=== PATIENT | male | born 1940 | race Caucasian/White ===

== ENCOUNTER 2018-02-06 19:23 | Inpatient (IN) | payer MEDICARE ==
[2018-02-06] MEDS ORDERED: Acetaminophen 500 MG TAB ONE (20:05)
[2018-02-06 20:16] LABS: #Basophils 0.1 thou/uL (0.0-0.2); #Eosinphils 0.1 thou/uL (0.0-0.7); #Lymphocytes 1.9 thou/uL (1.20-3.40); #Monocytes 0.9 thou/uL (0.11-0.59); %Basophils 0.4 % (0.0-1.0); %Lymphocytes 15.7 % (21.0-51.0); %Monocytes 7.7 % (0.0-10.0); %Neutrophils 75.3 % (42.0-75.0); Hemoglobin 11.8 g/dL (14.0-18.0); Mean Corpuscular HGB CONC 32.9 g/dL (32.0-36.0); Mean Corpuscular Hemoglobin 29.7 pg (27.0-31.0); Mean Corpuscular Volume 90.1 fL (78.0-98.0); Mean Platelet Volume 7.1 fL (7.4-10.4); Platelet Count 226 thou/uL (130-400); RBC Distribution Width 12.5 % (11.5-14.5); Red Blood Cell (RBC) Count 3.99 mill/uL (4.70-6.10); White Blood Cell (WBC) Count 11.9 thou/uL (4.8-10.8)
[2018-02-06 20:36] LABS: ALT (SGPT) 12 U/L (8-55); AST (SGOT) 14 U/L (5-34); Albumin 4.1 g/dL (3.4-4.8); Alkaline Phosphatase 80 U/L (40-150); Anion Gap 11 mmol/L (10-20); BUN (Urea Nitrogen) 17 mg/dL (8.4-25.7); Bilirubin, Total 0.6 mg/dL (0.2-1.2); Calc. Creatinine Clearance 0 mL/min (70-130); Calcium 9.2 mg/dL (7.8-10.44); Carbon Dioxide 31 mmol/L (23-31); Chloride 97 mmol/L (98-107); Estimated GFR-MDRD Greater than 90; Globulin 4.2 g/dL (2.4-3.5); Glucose 109 mg/dL (83-110); Potassium 4.2 mmol/L (3.5-5.1); Protein, Total 8.3 g/dL (5.8-8.1); Sodium 135 mmol/L (136-145)
[2018-02-06] MEDS ORDERED: Piperacillin/Tazobactam 4.5 GM VIAL ONE (21:03)
--- NOTE | 2018-02-06 21:03 | RAD ---
CHEST ONE VIEW 02/06/18 INDICATION: History of throat cancer with cough and fever. COMPARISON: Prior exam dated 11/24/13. FINDINGS: There are new patchy areas of air space opacity involving the right lower lobe suspicious for pneumon ia. Chronic lung changes are otherwise stable. Heart size is normal. No acute osseous abnormality is evident. IMPRESSION: Patchy opacities within the right lower lobe are suspicious for pneumonia. Recommend radiographic fol lowup to resolution. POS: [facility]
[2018-02-06 22:10] LABS: Bilirubin Negative (Negative); Blood, Urine Negative (Negative); Clarity CLEAR (Clear); Glucose, Urine (Dipstick) Negative (Negative); Leukocyte Negative (Negative); Nitrite Negative (Negative); Protein, Urine (Dipstick) Negative (Neg-Trace); Specific Gravity, Urine 1.014 (1.002-1.036); pH, Urine 8.5 (5.0-9.0)
[2018-02-06] MEDS ORDERED: Ondansetron PF 4 MG/2 ML Vial IVP PRN (23:08)
[2018-02-06] MEDS ORDERED: Ondansetron ODT 4 MG TAB SL PRN (23:08)
[2018-02-06] MEDS ORDERED: Acetaminophen 325 MG TAB PO PRN (23:08)
[2018-02-06] MEDS ORDERED: Dextrose 5 % And 0.9 % NaCl 1,000 ML IV SCH (23:15)
[2018-02-07 00:53] VITALS: BMI 21.2
[2018-02-07] MEDS ORDERED: Piperacillin/Tazobactam 3.375 GM in Sodium Chloride 0.9% 100 ML IVPB SCH (03:00)
[2018-02-07 05:21] LABS: #Eosinphils 0.1 thou/uL (0.0-0.7); #Lymphocytes 1.3 thou/uL (1.20-3.40); #Monocytes 0.9 thou/uL (0.11-0.59); #Neutrophils 6.9 thou/uL (1.40-6.50); %Eosinophils 1.3 % (0.0-10.0); %Lymphocytes 14.2 % (21.0-51.0); %Monocytes 9.4 % (0.0-10.0); %Neutrophils 75.2 % (42.0-75.0); Hemoglobin 9.6 g/dL (14.0-18.0); Mean Corpuscular HGB CONC 32.5 g/dL (32.0-36.0); Mean Corpuscular Hemoglobin 29.6 pg (27.0-31.0); Mean Corpuscular Volume 91.1 fL (78.0-98.0); Mean Platelet Volume 7.3 fL (7.4-10.4); Platelet Count 177 thou/uL (130-400); RBC Distribution Width 12.6 % (11.5-14.5); Red Blood Cell (RBC) Count 3.26 mill/uL (4.70-6.10); White Blood Cell (WBC) Count 9.2 thou/uL (4.8-10.8)
[2018-02-07 05:39] LABS: ALT (SGPT) 10 U/L (8-55); AST (SGOT) 10 U/L (5-34); Albumin 3.1 g/dL (3.4-4.8); Alkaline Phosphatase 60 U/L (40-150); Anion Gap 10 mmol/L (10-20); BUN (Urea Nitrogen) 13 mg/dL (8.4-25.7); Bilirubin, Total 0.7 mg/dL (0.2-1.2); Calc. Creatinine Clearance 77 mL/min (70-130); Calcium 8.6 mg/dL (7.8-10.44); Carbon Dioxide 25 mmol/L (23-31); Chloride 103 mmol/L (98-107); Estimated GFR-MDRD Greater than 90; Globulin 3.2 g/dL (2.4-3.5); Glucose 114 mg/dL (83-110); Potassium 3.9 mmol/L (3.5-5.1); Protein, Total 6.3 g/dL (5.8-8.1); Sodium 134 mmol/L (136-145)
[2018-02-07] MEDS ORDERED: Acetaminophen 325 MG TAB PO PRN (07:27)
--- NOTE | 2018-02-07 07:54 | HP ---
ADMITTING PHYSICIAN: Dr. Juan M Whitmore covering for Dr. Valadez. Dr. Valadez will take over care when he returns. HISTORY OF PRESENT ILLNESS: The patient is a 77-year-old male with previous history of throat cancer . He has undergone radiation therapy at [facility]. His reports yesterday he was at [facility] derson and driving home he developed a fever of 102 associated with some cough, productive sputum. E vidently, a chest x-ray was done at [facility] yesterday which revealed possible pneumonia, althou gh he was there, he was receiving immunosuppressive therapy. He was able to drive home and then repo rted to the emergency room here. He was seen and evaluated here in the emergency room. Chest x-ray here showed a patchy infiltrate in the right lower lobe suspicious for possible pneumonia. The patie nt has been noting a productive cough. He has had evidently multiple admissions principally through [facility] for pneumonia over the last several months, but none here in [facility]. H is notes that he would tend to be admitted and then go home and have further bouts of fever whic h necessitated further admission at [facility]. There has been no nausea, vomiting, diarrhea, no chest pain, no shortness of breath, otherwise reported. It is noted he does receive tube feedings du e to the previous history of throat cancer. Otherwise, no other medical complaints are noted. ALLERGIES: He has no known allergies. CURRENT MEDICATIONS: Carbamazepine 100 mg b.i.d., carvedilol 25 mg daily, lisinopril 20 mg daily. PAST MEDICAL HISTORY: Positive for hypertension as well as trigeminal neuralgia. PAST SURGICAL HISTORY: Positive for tonsillectomy. He has a feeding tube in place. Back surgery. He denies any history of cardiac disease. SOCIAL/PERSONAL HISTORY: He has smoked in the past. He does not smoke at this time. FAMILY HISTORY: Otherwise noncontributory. REVIEW OF SYSTEMS: GASTROINTESTINAL: Positive for some belching. GENITOURINARY: Otherwise, negative. CARDIOVASCULAR: Negative. RESPIRATORY: Positive as above. NEUROLOGICAL: Positive for the above noted trigeminal neuralgia. PHYSICAL EXAMINATION: VITAL SIGNS: His temperature is 98.5, BP 119/56, O2 sats 92% on room air. GENERAL: He is alert, active, he did not appear in any distress. HEENT: Otherwise, unremarkable. NECK: Supple, full range of motion, no masses. LUNGS: Reveal bilateral breath sounds. There are some crackles, rales, rhonchus sounds at the right base. There is not overwhelming sounds of rales otherwise noted, maybe an occasional wheeze. HEART: Regular rate and rhythm without murmurs, gallops or rubs. ABDOMEN: Soft, nontender, bowel sounds are present and active. There is no hepatosplenomegaly noted . The feeding tube was noted to be in place at this time. EXTREMITIES: No clubbing, edema or cyanosis. LABORATORY: Admission white count is 11.9, hemoglobin 11.8, hematocrit 36.0. Sodium 135, potassium 4.2, chloride 97, CO2 31, BUN 17, creatinine 0.82. Urinalysis is otherwise clear. In the emergency room, the patient received 1 gram of vancomycin, 750 mg of Levaquin and Zosyn. IMPRESSION: 1. Probable aspiration pneumonia. The patient is at high degree risk for aspiration with feeding tu be in place as well as previous history of throat cancer. The sputum he is coughing up is fairly ran k looking and purulent. 2. History of throat cancer. PLAN: 1. The patient will be continued on IV antibiotics with vancomycin, Levaquin, and cefepime for pneum onia protocol. 2. I have consulted Dr. Pardo to further elaborate on therapy. 3. I have discussed the findings with the patient's . We will notify the patient that Dr. Raulito thomas is unavailable at this time and that his care will be provided for by me today and then I will be o ut of town later this week. All of the patient's questions were answered.
[2018-02-07] MEDS: carBAMazepine 100 mg Chewable Tablet PO SCH ×2 (08:45→21:29)
[2018-02-07] MEDS: Azithromycin 500 MG in Sodium Chloride 0.9% 250 ML 250 ML IVPB SCH (08:46)
[2018-02-07] MEDS: Carvedilol 25 MG TAB PO SCH ×2 (08:46→21:29)
[2018-02-07] MEDS ORDERED: Cefepime 2 GM in Sodium Chloride 0.9% 100 ML IVPB SCH (09:00)
[2018-02-07] MEDS ORDERED: Vancomycin HCl 1 GM in Sodium Chloride 0.9% 250 ML 300 ML IVPB SCH (09:00)
[2018-02-07] MEDS ORDERED: Loratadine 10 MG TAB PO SCH (09:00)
[2018-02-07] MEDS ORDERED: Lisinopril 20 MG TAB PO SCH (09:00)
--- NOTE | 2018-02-07 09:44 | CON ---
DATE OF CONSULTATION: 02/07/2018 CONSULTING PHYSICIAN: Dr. Juan M Whitmore REASON FOR CONSULTATION: Pneumonia. HISTORY OF PRESENT ILLNESS: Mr. Parker is a 77-year-old male who came to the hospital yesterday with purulent cough and a fever. He is currently receiving immunotherapy through [facility] for continu ed treatment of throat cancer. He was diagnosed with throat cancer some time ago and was treated wit h radiation and chemotherapy and he continues on maintenance immunotherapy. His states that he had a fever before going to [facility] for a checkup yesterday, but by the time he got there, the fever was gone. They noticed some changes on CT scan which seemed consistent with aspiration, but [facility] provider did not want to treat the patient for pneumonia at that time because he looked okay in the clinic. On the way home, he developed a fever and subsequently came to the hospital here for furthe r evaluation. The patient feels better today. He is still coughing up purulent secretions. He hero es any antibiotic use in the last 3 months. He denies any steroid use in the last 1 year. PAST MEDICAL HISTORY: 1. Hypertension. 2. Throat cancer. 3. Trigeminal neuralgia. PAST SURGICAL HISTORY: 1. He has had a PEG tube placement 2. Tonsillectomy. 3. Back surgery. SOCIAL HISTORY: Quit smoking several years ago, quit drinking about a year ago. He is retired. FAMILY MEDICAL HISTORY: Unremarkable. REVIEW OF SYSTEMS: He has some difficulty swallowing. He has to wear a neck guard at night for lymp hedema. He has trigeminal neuralgia symptoms. Otherwise, 12 point review of systems is negative. PHYSICAL EXAMINATION: VITAL SIGNS: Temperature 98.5, pulse 95, respirations 18, O2 sat 93%, blood pressure 126/66. GENERAL: He is awake, alert, sitting in a chair in no distress. HEENT: Pupils react. Sclerae anicteric. Oropharynx clear. NECK: He has some swelling around his throat area which seems to be chronic in nature. CARDIAC: S1, S2 regular without audible murmur. LUNGS: Coarse rhonchi, right base, left side clear. ABDOMEN: Soft, nontender. Feeding tube midline. EXTREMITIES: Severe muscle wasting. No cyanosis or edema. LABORATORY DATA: Urinalysis was clear. White blood cell count 9.2, hematocrit 29.7, platelet count 177. Sodium 134, potassium 3.9, chloride 103, CO2 of 25, BUN 13, creatinine 0.7, glucose 114, calciu m level 8.6. Chest x-ray showed a right lower lobe infiltrate. ASSESSMENT: 1. Aspiration pneumonia. 2. History of throat cancer with chronic swallowing dysfunction. PLAN: I agree with treatment with Zosyn and vancomycin. Cefepime will overlap Zosyn so I will go ah ead and stop that. Use of the azithromycin is equivocal. I would defer on steroid use for the time being unless he gets worse. Continue with breathing treatments as needed. The above encompassed 30 minutes time, of that time, greater than 50% was spent with the patient or o n the patient's unit in the hospital.
[2018-02-07] MEDS: Piperacillin/Tazobactam 3.375 GM in Sodium Chloride 0.9% 100 ML IVPB SCH ×3 (10:10→21:23)
[2018-02-07] MEDS ORDERED: Loratadine 10 MG TAB PO PRN (10:13)
[2018-02-07] MEDS: Vancomycin HCl 1.25 GM in Sodium Chloride 0.9% 250 ML 250 ML IVPB SCH (10:50)
[2018-02-07] MEDS: Lisinopril 10 MG TAB PO SCH (21:29)
[2018-02-08] MEDS: Piperacillin/Tazobactam 3.375 GM in Sodium Chloride 0.9% 100 ML IVPB SCH ×4 (03:05→20:28)
--- NOTE | 2018-02-08 07:45 | PRG ---
DATE OF SERVICE: 02/08/2018 He feels better today. He did relatively well overnight. He has had some loose stools. PHYSICAL EXAMINATION: VITAL SIGNS: Temperature is 98.8 with a T-max of 99.0, pulse 93, respirations 18, O2 sat 96% room ai r, blood pressure 145/71. HEENT: Remarkable for dry oral mucous membranes. NECK: He has a compression dressing in place. LUNGS: Fairly clear without wheezing or rhonchi. CARDIAC: S1 and S2 regular, no murmur. ABDOMEN: Soft, nontender. EXTREMITIES: No edema. He had no labs today. His respiratory culture shows gram negative rods from a Gram stain, moderate i n nature. Identification pending. ASSESSMENT: 1. Possible pneumonia. 2. Chronic aspiration. 3. History of throat cancer with swallowing dysfunction. PLAN: 1. Continue treatment with Zosyn, vancomycin and we can consolidate antibiotics based on culture res ults tomorrow. If this truly gram negative prisca the vancomycin will definitely be discontinued. 2. Since he is having a little loose stools, I will go ahead and send stool for Clostridium diffici le. 3. If he is doing well tomorrow I would assume that he could probably be switched over to oral antib iotics and discharged to home by Sunday.
[2018-02-08] MEDS: Carvedilol 25 MG TAB PO SCH ×2 (08:45→20:21)
[2018-02-08] MEDS: Azithromycin 500 MG in Sodium Chloride 0.9% 250 ML 250 ML IVPB SCH (08:45)
[2018-02-08] MEDS: carBAMazepine 100 mg Chewable Tablet PO SCH ×2 (08:45→20:21)
[2018-02-08] MEDS: Vancomycin HCl 1.25 GM in Sodium Chloride 0.9% 250 ML 250 ML IVPB SCH (12:05)
[2018-02-08] MEDS ORDERED: Insulin Regular 300 UNITS/3 ML VIAL ONE (13:11)
[2018-02-08] MEDS: Lisinopril 10 MG TAB PO SCH (20:21)
[2018-02-09] MEDS: Piperacillin/Tazobactam 3.375 GM in Sodium Chloride 0.9% 100 ML IVPB SCH ×3 (02:38→14:36)
[2018-02-09] MEDS: Carvedilol 25 MG TAB PO SCH ×2 (08:45→21:59)
[2018-02-09] MEDS: carBAMazepine 100 mg Chewable Tablet PO SCH ×3 (08:45→22:07)
[2018-02-09] MEDS: Azithromycin 500 MG in Sodium Chloride 0.9% 250 ML 250 ML IVPB SCH (08:46)
[2018-02-09] MEDS: Vancomycin HCl 1.25 GM in Sodium Chloride 0.9% 250 ML 250 ML IVPB SCH ×2 (08:48→14:46)
[2018-02-09 09:52] LABS: Vancomycin, Trough 6.7 ug/mL
--- NOTE | 2018-02-09 16:37 | PRG ---
DATE OF SERVICE: 02/09/2018 SERVICE: Pulmonary Medicine. INTERVAL HISTORY: Patient is doing outstanding from a respiratory standpoint. His mentation is impr parris. His strength is getting better. Otherwise, there has been no interval change to his condition . PHYSICAL EXAMINATION: VITAL SIGNS: Afebrile, pulse 81, blood pressure 156/69, respirations 18, saturation 97% on room air. GENERAL: Patient is awake, alert, no apparent distress. LUNGS: Decent air entry. There is no prolonged expiratory phase or wheezing present. HEART: Normal rate, regular. ABDOMEN: Soft, nontender, nondistended. Bowel sounds are positive. MUSCULOSKELETAL: No cyanosis or clubbing. There is no pitting in the bilateral lower extremities. NEUROLOGIC: Grossly nonfocal. ASSESSMENT: 1. Pneumonia secondary to gross aspiration. 2. History of throat cancer with oropharyngeal dysphagia. DISCUSSION AND PLAN: It looks like the sensitivities are back. As such, he is growing Klebsiella, p resumptive Pseudomonas and Staph aureus. These things appear to be sensitive to fluoroquinolones. A s such, we will switch him over to monotherapy with p.o. Levaquin. He will need to complete set a 7- 10 day course of these antibiotics. From my perspective, he will be stable for transition out of the hospital in 24-48 hours if his strength continues to improve.
[2018-02-09] MEDS: Lisinopril 10 MG TAB PO SCH (21:59)
[2018-02-09] MEDS ORDERED: Vancomycin HCl 1 GM in Premix Bag 1 BAG IVPB SCH (22:00)
[2018-02-10] MEDS: Carvedilol 25 MG TAB PO SCH ×2 (08:08→21:54)
[2018-02-10] MEDS: carBAMazepine 100 mg Chewable Tablet PO SCH ×2 (08:08→21:55)
--- NOTE | 2018-02-10 18:08 | PRG ---
DATE OF SERVICE: 02/10/2018 SERVICE: Pulmonary Medicine. INTERVAL HISTORY: The patient is doing fine from a respiratory standpoint. He is on room air. He denies any current chest pain, fevers, chills, cough, shortness of breath. He has been able to work with physical therapy. He is doing a little bit of work with Speech Pathology. Otherwise, there has been no interval change to his condition. PHYSICAL EXAMINATION: VITAL SIGNS: Afebrile, pulse 83, blood pressure 177/87, respirations 16, saturation 95% on room air. GENERAL: The patient is awake and alert, in no apparent distress. LUNGS: Excellent air entry. Rhonchi are present. They clear with cough. No prolonged expiratory phase or wheezing is appreciated. HEART: Normal rate, regular. ABDOMEN: Soft, nontender, nondistended. Bowel sounds are positive. MUSCULOSKELETAL: No cyanosis or clubbing. No pitting in the bilateral lower extremities. NEUROLOGIC: Grossly nonfocal. LABORATORY DATA: Sputum is growing Pseudomonas, Staph aureus, Klebsiella. All three of these organisms are sensitive to the fluoroquinolones. ASSESSMENT: 1. Pneumonia secondary to gross aspiration. 2. History of throat cancer with oropharyngeal dysphagia. DISCUSSION AND PLAN: These organisms are all sensitive to fluoroquinolones. As such, he will complete a 7- to 10-day course of Levaquin. Pulmonary Critical Care will continue to follow along, but from my perspective, he is stable for transition out of the hospital. ADRIAN
[2018-02-10] MEDS: Lisinopril 10 MG TAB PO SCH (21:54)
[2018-02-11] MEDS: carBAMazepine 100 mg Chewable Tablet PO SCH (08:29)
[2018-02-11] MEDS: Carvedilol 25 MG TAB PO SCH (08:29)
[2018-02-11 08:54] VITALS: BP 156/75; TEMP 97.7
--- NOTE | 2018-02-11 09:07 | DIS ---
DATE OF ADMISSION: 02/07/2018 DATE OF DISCHARGE: 02/11/2018 DISCHARGE DIAGNOSES: 1. Aspiration pneumonia with Klebsiella and Staphylococcus aureus. 2. Cachexia. 3. Throat cancer, status post radiation therapy. 4. Hypertension. 5. Trigeminal neuralgia. 6. PEG tube in place. DISCHARGE MEDICATIONS: Tegretol 100 b.i.d., carvedilol 25 mg daily, lisinopril 20 daily, vitamins da nelson, Levaquin 500 mg daily #10, Astelin nasal 2 sprays each nostril q.12 hours. Follow up in 10 days, Dr. Jcarlos Valadez. BRIEF HISTORY: This is a 77-year-old white male with a history of throat cancer, status post radiati on therapy at [facility]. He is returning home from [facility] yesterday, and on route, he develop ed a fever of 102 with acute onset of a productive cough with some purulent sputum noted. Chest x-ra y at [facility] that day also revealed a possible pneumonia. The then brought him to [facility] where he was admitted for treatment. A chest x-ray did show patchy infiltrates in the right lower lobe consistent with aspiration pneumonia. He does sleep in a recliner every night. He also uses ne ti pot twice a day on a daily basis for several months. He also has a history of marked weight loss and severe throat pain from radiation. He was recently started on Tegretol 100 b.i.d. and his s nixon that has been an incredible drug. His throat pain has decreased significantly. HOSPITAL COURSE: The patient was admitted. He was placed on antibiotics, vancomycin and cefepime. His fever resolved. He has been afebrile for 3 days. He is feeling much better. He is now ready fo r discharge. Dr. Pardo and Dr. Hancock were consulted. He will be discharged on Levaquin 500 for another 10 days and Astelin. I encouraged the patient to minimize the neti pot for now. I believe h papo has become somewhat addicted or it has become a routine in his life, which may be causing problems. We will follow up with the patient in 10 days.
== END 2018-02-11 12:23 | disposition home or self-care (01) | DRG 178 ==
LOC: ERS 19:23 → ONC 20:58
PROVIDERS: ADMIT Family Medicine; ATTEND Family Medicine
DX: J69.0 Pneumonitis due to inhalation of food and vomit (principal); R64 Cachexia; I10 Essential (primary) hypertension; B96.1 Klebsiella pneumoniae [K. pneumoniae] as the cause of diseases classified elsewhere; B95.61 Methicillin susceptible Staphylococcus aureus infection as the cause of diseases classified elsewhere; G50.0 Trigeminal neuralgia; Z68.21 Body mass index [BMI] 21.0-21.9, adult; Z87.891 Personal history of nicotine dependence; Z85.89 Personal history of malignant neoplasm of other organs and systems; Z93.1 Gastrostomy status
CPT/HCPCS: 36415; 71045; 80053; 80202; 81003; 83605; 85025; 87040; 87070; 87077; 87186; 87205; 87324; 87449; 87804; 96361; 96365; 96367; 96368; J0456; J0692; J1815; J1956; J2543; J3370; J7050

== ENCOUNTER 2018-03-09 13:49 | Inpatient (IN) | payer MEDICARE ==
[~2018-03-09 13:49] MED LIST: Iopamidol 370 76% 100 ML VIAL ONE
[2018-03-09 14:17] LABS: Bilirubin Negative (Negative); Blood, Urine Negative (Negative); Clarity TURBID (Clear); Glucose, Urine (Dipstick) Negative (Negative); Leukocyte Negative (Negative); Nitrite Negative (Negative); Protein, Urine (Dipstick) Trace mg/dL (Neg-Trace); Specific Gravity, Urine 1.021 (1.002-1.036)
[2018-03-09 14:27] LABS: #Eosinphils 0.1 thou/uL (0.0-0.7); #Lymphocytes 1.3 thou/uL (1.20-3.40); #Monocytes 0.8 thou/uL (0.11-0.59); #Neutrophils 7.7 thou/uL (1.40-6.50); %Basophils 0.2 % (0.0-1.0); %Eosinophils 1.4 % (0.0-10.0); %Lymphocytes 12.9 % (21.0-51.0); %Monocytes 7.7 % (0.0-10.0); %Neutrophils 77.8 % (42.0-75.0); Hemoglobin 12.2 g/dL (14.0-18.0); Mean Corpuscular HGB CONC 32.3 g/dL (32.0-36.0); Mean Corpuscular Hemoglobin 28.9 pg (27.0-31.0); Mean Corpuscular Volume 89.4 fL (78.0-98.0); Platelet Count 159 thou/uL (130-400); RBC Distribution Width 12.8 % (11.5-14.5); Red Blood Cell (RBC) Count 4.22 mill/uL (4.70-6.10); White Blood Cell (WBC) Count 9.9 thou/uL (4.8-10.8)
[2018-03-09 14:46] LABS: ALT (SGPT) 14 U/L (8-55); AST (SGOT) 16 U/L (5-34); Albumin 3.8 g/dL (3.4-4.8); Alkaline Phosphatase 93 U/L (40-150); Anion Gap 11 mmol/L (10-20); BUN (Urea Nitrogen) 17 mg/dL (8.4-25.7); Bilirubin, Total 0.5 mg/dL (0.2-1.2); Calc. Creatinine Clearance 0 mL/min (70-130); Calcium 9.3 mg/dL (7.8-10.44); Carbon Dioxide 29 mmol/L (23-31); Chloride 100 mmol/L (98-107); Estimated GFR-MDRD Greater than 90; Globulin 4.2 g/dL (2.4-3.5); Glucose 119 mg/dL (83-110); Potassium 4.3 mmol/L (3.5-5.1); Sodium 136 mmol/L (136-145)
--- NOTE | 2018-03-09 14:56 | RAD ---
PORTABLE CHEST: DATE: 03/09/2018. PROVIDED CLINICAL HISTORY: Fever. FINDINGS: Comparison 02/06/2018. Cardiac and mediastinal silhouette is unchanged in appearance. Vascular calci fication involves the aortic arch. No focal airspace disease is evident. No pleural fluid or pneumo thorax apparent. IMPRESSION: No evidence for an acute cardiopulmonary process. POS: [facility]
[2018-03-09] MEDS ORDERED: Piperacillin/Tazobactam 4.5 GM VIAL ONE (15:43)
[2018-03-09] MEDS ORDERED: Acetaminophen 500 MG TAB ONE (16:41)
--- NOTE | 2018-03-09 17:47 | CT ---
CT ANGIOGRAM THORAX WITH IV CONTRAST AND 3D RECONSTRUCTION 03/09/18 HISTORY: Fever. History of throat cancer in remission. Reports of silent aspiration. COMPARISON: None available. FINDINGS: No filling defects are seen in the pulmonary arteries to suggest a pulmonary embolus. Prominent vascular calcifications seen in the coronary arteries with vascular calcifications involvin g the thoracic and visualized upper abdominal aorta. There are reticulonodular densities as well as prominent parenchymal densities in the right lower lob e likely related to either aspiration pneumonitis or pneumonia. There are filling defects seen within right lower lobe bronchi again which may be related to mucous plugging or aspiration. There are smal l dependent filling defects seen within the right main stem bronchus and to a lesser extent small sophie ling defects within the right middle lobe bronchi. Mild pleural and parenchymal scarring is seen in each lung apex. There is a small 3 to 4 mm pulmonary nodule in the lateral aspect of the left the upper lobe (image 66, series 3). No definite additional discrete pulmonary nodule is delineated. There are enlarged sub carinal and right hilar lymph nodes which may be reactive in origin. The subca rinal lymph node measures approximately 1.6 cm in short axis dimension. There is question of mild thi ckening of the adjacent esophagus, but this may be related to an additional closely adjacent mediasti nal lymph node with similar density to the adjacent esophagus limited adequate evaluation. There is partial visualization of a fluid attenuation low density structure in the mid portion left k idney measuring 2 cm which may reflect a small incompletely imaged renal cyst. The remainder of the u pper abdomen has a normal CT appearance. Multilevel degenerative changes are seen in the spine. There is a prominent hemangioma in the L2 vert ebral body. Prominent multilevel end plate degenerative changes are present. IMPRESSION: 1. Reticulonodular and patchy parenchymal opacities in the right lower lobe in addition to multi ple filling defects in right lower lobe bronchi as well as layering debris within the right main stem bronchus. These findings may be attributable to aspiration and subsequent aspiration pneumonitis. Pn eumonia at the right lung base is a possibility. 2. Filling defects within right middle lobe bronchi. 3. No CT evidence of a pulmonary embolus. 4. Subcarinal and right hilar lymphadenopathy which may be reactive in origin. Suggested focal a bunny of thickening involving the mid thoracic esophagus which is in a subcarinal location. This may re present a closely adjacent enlarged lymph nodes with similar density to the esophagus limiting adequa te evaluation. However, followup evaluation in one month after treatment of right lower lobe aspirati on pneumonitis and/or pneumonia is recommended to ensure resolution of this finding and suggested are a of thickening in the esophagus. 5. No CT evidence of a pulmonary embolus. 6. Incomplete visualization of probable left renal cyst. POS: [facility]
[2018-03-09 18:17] VITALS: BMI 20.7
[2018-03-09] MEDS ORDERED: Lisinopril 20 MG TAB PO SCH (21:45)
[2018-03-09] MEDS: Carvedilol 25 MG TAB PO SCH (22:00)
[2018-03-09] MEDS: carBAMazepine 100 mg Chewable Tablet PO SCH (22:24)
[2018-03-09] MEDS: Clindamycin/D5W 600 MG in Premix Bag 1 BAG IVPB SCH (23:48)
[2018-03-09] MEDS ORDERED: Piperacillin/Tazobactam 3.375 GM in Sodium Chloride 0.9% 100 ML IVPB SCH (23:59)
--- NOTE | 2018-03-10 04:39 | HP ---
The patient's PCP is Dr. Ray Valadez. CHIEF COMPLAINT: Shortness of breath. HISTORY OF PRESENT ILLNESS: The patient has PEG tube placement secondary to dysphagia from head and neck cancer, status post chemotherapy and radiation treatment. The patient is currently on immunotherapy, was deemed in remission as of approximately October with [facility]; however, the patient has continued to struggle with adequate oral intake. He is on modified solids with nectar-thick liquids with Speech Therapy evaluation in [place] around October. The patient has not had further speech evaluation per the patient's spouse including last hospital admission 1 month ago for pneumonitis and aspiration pneumonia. In the emergency department, the patient was desaturating and had a fever with tachypnea and tachycardia, stabilized on nasal cannula. CAT scan did not show any blood clots ; however, did confirm pneumonitis and pneumonia. The patient has multiple healthcare exposures with his trip to [facility] with last admission a month ago. Review of past medical, social, and surgical history includes hypertension, trigeminal neuralgia, head and neck cancer, status post tonsillectomy, PEG tube, back surgery, and positive tobacco history remotely. FAMILY HISTORY: Noncontributory. ALLERGIES: NO KNOWN DRUG ALLERGIES. HOME MEDICATIONS: Include; 1. Carbamazepine 100 mg 1 tab p.o. b.i.d. 2. Carvedilol 25 mg 1 tab p.o. b.i.d. 3. Lisinopril 20 mg 1 tab p.o. daily. 4. . LABORATORY DATA: Laboratory work reviewed. White blood cell count of 9.9, hemoglobin of 12.2. D-dimer positive for 1.5. Sodium of 136, potassium of 4.3 , CO2 of 29, creatinine of 0.77, and blood glucose of 118. Albumin of 3.8. Urinalysis unremarkable. Influenza negative. Prior sputum culture reviewed last month; klebsiella Pseudomonas aeruginosa, staph aureus. CT reviewed; no PE, extensive pneumonitis, and likely aspiration pneumonia to right lung base. PHYSICAL EXAMINATION: VITAL SIGNS: Review of vital signs on arrival to the floor; temperature of 100.2, pulse of 95, respiratory rate of 18, oxygen saturation of 93% on 2 L nasal cannula, and blood pressure of 138/62. GENERAL: The patient is alert and oriented, in no acute distress. HEENT: Head is normocephalic and atraumatic. Extraocular movements are intact. Temporal wasting is noted. Nasal cannula in place. The patient with difficulty clearing secretions and slight hoarse voice at baseline. NECK: Supple. No goiter or lymphadenopathy palpated. HEART: Regular rate and rhythm at the time of exam. LUNGS: Clear to auscultation bilaterally. No rubs or wheezes. No rhonchi or rales. ABDOMEN: PEG tube in place, currently undergoing gravity fed tube feeds; this was the patient's home feeding the patient's spouse brought with him. The patient does take some oral intake and nectar-thick liquids. Abdomen is soft, otherwise positive bowel sounds. EXTREMITIES: Lower extremities without cyanosis or edema. The patient is alert and oriented x3. No focal deficits. Speech is normal. ASSESSMENT AND PLAN: Aspiration pneumonitis and pneumonia with healthcare exposures when treated for health care-associated pneumonia present on admission secondary to the patient's dysphagia and cancer treatment, continuation of the patient's feeding regimen. We will get Speech Therapy to follow up and Dietary to review the patient's PEG tube requirements with family. We will cover with clindamycin and Levaquin, which also covers the patient's prior bacterial colonization with Staph aureus, pseudomonas and susceptibilities were reviewed prior. Maintain the patient's oxygen saturations, cover with prophylactic Lovenox at this point in time. Continue the patient's home medications otherwise. Job ID: [id number] [facility]
[2018-03-10] MEDS: Clindamycin/D5W 600 MG in Premix Bag 1 BAG IVPB SCH ×4 (05:48→21:24)
[2018-03-10 06:37] LABS: #Eosinphils 0.1 thou/uL (0.0-0.7); #Lymphocytes 1.6 thou/uL (1.20-3.40); #Monocytes 0.8 thou/uL (0.11-0.59); #Neutrophils 6.7 thou/uL (1.40-6.50); %Basophils 0.3 % (0.0-1.0); %Eosinophils 1.3 % (0.0-10.0); %Lymphocytes 17.5 % (21.0-51.0); %Monocytes 8.4 % (0.0-10.0); %Neutrophils 72.5 % (42.0-75.0); Mean Corpuscular HGB CONC 32.9 g/dL (32.0-36.0); Mean Corpuscular Hemoglobin 29.3 pg (27.0-31.0); Mean Corpuscular Volume 89.3 fL (78.0-98.0); Mean Platelet Volume 7.8 fL (7.4-10.4); Platelet Count 131 thou/uL (130-400); White Blood Cell (WBC) Count 9.2 thou/uL (4.8-10.8)
[2018-03-10 06:55] LABS: ALT (SGPT) 11 U/L (8-55); AST (SGOT) 11 U/L (5-34); Albumin 3.4 g/dL (3.4-4.8); Alkaline Phosphatase 76 U/L (40-150); Anion Gap 9 mmol/L (10-20); BUN (Urea Nitrogen) 15 mg/dL (8.4-25.7); Bilirubin, Total 0.6 mg/dL (0.2-1.2); Calc. Creatinine Clearance 78 mL/min (70-130); Calcium 8.8 mg/dL (7.8-10.44); Carbon Dioxide 27 mmol/L (23-31); Chloride 103 mmol/L (98-107); Estimated GFR-MDRD Greater than 90; Globulin 3.6 g/dL (2.4-3.5); Glucose 111 mg/dL (83-110); Sodium 135 mmol/L (136-145)
[2018-03-10] MEDS: Enoxaparin Sodium 40 MG/0.4 ML SYRINGE SC SCH (08:13)
[2018-03-10] MEDS: Carvedilol 25 MG TAB PO SCH ×2 (08:13→21:24)
[2018-03-10] MEDS ORDERED: Prevnar 13-Val Conj/PF 0.5 ML SYRINGE IM ONE (09:00)
[2018-03-10] MEDS ORDERED: Lisinopril 20 MG TAB PO SCH (09:00)
[2018-03-10] MEDS: carBAMazepine 100 mg Chewable Tablet PO SCH ×2 (09:18→21:23)
[2018-03-10] MEDS ORDERED: Clindamycin/D5W 600 mg/50 ml Premix Bag ONE (14:11)
[2018-03-10] MEDS ORDERED: Acetaminophen 500 MG TAB PO PRN (20:46)
[2018-03-10] MEDS ORDERED: Acetaminophen 650 MG/20.3 ML UDCUP PER TUBE PRN (20:49)
[2018-03-10] MEDS: Lisinopril 20 MG TAB PO SCH (21:23)
--- NOTE | 2018-03-10 23:56 | PRG ---
DATE OF SERVICE: 03/10/2018 HISTORY OF PRESENT ILLNESS: The patient was evaluated by Speech Therapy, not found safe for swallow. The patient had been doing nectar-thick liquids prior with mechanically soft diet. Currently made strict n.p.o. Tube feeds restarted and continued following speech therapy evaluation. Bedside Speech Therapy barium swallow pending tomorrow. The patient is maintained on clindamycin and Levaquin for aspiration pneumonia. Currently having low-grade temperature, but remains stable on nasal cannula. LABORATORY DATA: White blood cell count of 9.2, creatinine of 0.74. Blood cultures x1 day, negative growth. PHYSICAL EXAMINATION: VITAL SIGNS: This morning; temperature of 98.2, pulse of 86, blood pressure 105/55. GENERAL: The patient is alert and oriented, in no acute distress. HEENT: Head is normocephalic and atraumatic. Extraocular movements are intact. Temporal wasting is noted. Nasal cannula in place. Oral mucosa is moist. HEART: Regular rate and rhythm. No murmurs auscultated. LUNGS: Clear to auscultation bilaterally. No rubs or wheezes. Slightly diminished at bilateral bases. ABDOMEN: PEG tube intact. EXTREMITIES: Lower extremities without cyanosis or edema. NEUROLOGIC: The patient is alert and oriented x3. No focal deficits. Speech is normal. ASSESSMENT AND PLAN: Aspiration pneumonia; pneumonitis; dysphagia, on tube feeds via PEG tube; history of throat cancer. Continuing antibiotics as above with Speech Therapy evaluation to follow. Nutrition through PEG tube only and medications through PEG tube only and IV at this point in time. Sending off to Dr. Ray Valadez in the morning. Job ID: [id number]
[2018-03-11] MEDS: Clindamycin/D5W 600 MG in Premix Bag 1 BAG IVPB SCH ×3 (05:30→21:59)
[2018-03-11 05:40] LABS: #Eosinphils 0.3 thou/uL (0.0-0.7); #Lymphocytes 1.1 thou/uL (1.20-3.40); #Monocytes 0.5 thou/uL (0.11-0.59); %Basophils 0.2 % (0.0-1.0); %Eosinophils 5.7 % (0.0-10.0); %Lymphocytes 17.7 % (21.0-51.0); %Neutrophils 67.4 % (42.0-75.0); Hemoglobin 9.8 g/dL (14.0-18.0); Mean Corpuscular HGB CONC 33.2 g/dL (32.0-36.0); Mean Corpuscular Hemoglobin 29.8 pg (27.0-31.0); Mean Platelet Volume 7.8 fL (7.4-10.4); Platelet Count 127 thou/uL (130-400); RBC Distribution Width 12.9 % (11.5-14.5); Red Blood Cell (RBC) Count 3.29 mill/uL (4.70-6.10); White Blood Cell (WBC) Count 5.9 thou/uL (4.8-10.8)
[2018-03-11 06:06] LABS: Anion Gap 10 mmol/L (10-20); BUN (Urea Nitrogen) 12 mg/dL (8.4-25.7); Calc. Creatinine Clearance 85 mL/min (70-130); Calcium 8.8 mg/dL (7.8-10.44); Carbon Dioxide 27 mmol/L (23-31); Chloride 101 mmol/L (98-107); Estimated GFR-MDRD Greater than 90; Glucose 98 mg/dL (83-110); Potassium 3.7 mmol/L (3.5-5.1); Sodium 134 mmol/L (136-145)
[2018-03-11] MEDS: Carvedilol 25 MG TAB PO SCH ×2 (08:53→21:23)
[2018-03-11] MEDS: carBAMazepine 100 mg Chewable Tablet PO SCH ×2 (08:53→21:23)
[2018-03-11] MEDS: Enoxaparin Sodium 40 MG/0.4 ML SYRINGE SC SCH (09:23)
--- NOTE | 2018-03-11 13:52 | CON ---
DATE OF CONSULTATION: 03/11/2018 SUBJECTIVE: The patient is feeling much better this morning. He was admitted for aspiration pneumonia and pneumonitis. OBJECTIVE: VITAL SIGNS: Temperature 98.1, pulse 81, respiratory rate 20, pulse ox 94, blood pressure 131/62. HEART: Regular rate and rhythm. LUNGS: Occasional crackles. No wheezing or rhonchi present. ABDOMEN: Soft. LABORATORY DATA: White count 5.9, H and H 9.8 and 29.6. Sodium 134, potassium 3.7, creatinine 0.68, BUN 12. ASSESSMENT: 1. Aspiration pneumonia/pneumonitis. 2. Dysphagia, on tube feeds via PEG. 3. History of throat cancer. PLAN: 1. Swallow test will be performed this morning. 2. Continue with speech therapy treatment. 3. Continue with IV antibiotics. 4. Continue to monitor sodium. 5. Repeat chest x-ray in the a.m. Job ID: [id number]
--- NOTE | 2018-03-11 14:21 | PQF ---
SARAH GRACE DAVID R JR MD [id number]- [id number] CLINICAL DOCUMENTATION IMPROVEMENT CLARIFICATION FORM: ICD-10 Updated PLEASE DO AN ADDENDUM TO THE PROGRESS NOTE WITH ANY DOCUMENTATION UPDATES OR ADDITIONS AND CARRY THROUGH TO DC SUMMARY. THANK YOU. DATE: 03/11 ATTN: DR. SAIDA MALDONADO Please exercise your independent, professional judgment in responding to the clarification form. Clinical indicators are provided on the bottom of this form for your review. Please check appropriate box(es): [ ] Sepsis due to: (PNA, UTI, gangrenous gall bladder, etc.) [ ] Localized infection without sepsis [ ] Other diagnosis [ ] Unable to determine For continuity of documentation, please document condition throughout progress notes and discharge summary. Thank You. CLINICAL INDICATORS - SIGNS / SYMPTOMS / LABS ER PRESENTATION 03/09: T: 100.6 (REPORTS 101.3 LAST NIGHT) HR: 101 RR : 24 RA SAT 89% > 2L: 100% ER PHYSICIAN DIAGNOSES: PNEUMONIA, SEPSIS RISK FACTORS: ASPIRATION PNEUMONIA DYSPHAGIA R/T HX THROAT CANCER TREATMENTS: IV ANTIBIOTICS (CLEOCIN & LEVAQUIN 03/09 - PRESENT) SPEECH CONSULT THANK YOU! Mayra (This form is maintained as a part of the permanent medical record) 2014 [employer]. All Rights Reserved Mayra Gauthier RN, BSN [email or web address] Office: [phone] [facility]
--- NOTE | 2018-03-11 14:23 | RAD ---
RADIOGRAPH CHEST 2 VIEWS: Date: 03/11/18 Time: 0949 hours HISTORY: 77-year-old male follow-up pneumonia. COMPARISON: 03/09/18. FINDINGS: Visible only on the lateral view, there is a mild-moderate infiltrate in the posterior base of the ri ght lower lobe. This is not visible on the frontal view such that there is no significant interval ch leonor on the frontal view since the previous 1 view study. Ectasia and tortuosity of the thoracic aort a. No cardiomegaly. No pulmonary edema or pleural effusion. No pneumothorax. IMPRESSION: Right lower lobe pneumonia. JN [] POS: [facility]
--- NOTE | 2018-03-11 15:21 | RAD ---
MODIFIED BARIUM SWALLOW: DATE: 01/11/2018. COMPARISON: None. HISTORY: Unspecified dysphagia, feeding difficulties. FINDINGS: A modified barium swallow is performed with a member of the division of speech pathology. The patien t is imaged in the lateral projection swallowing various consistencies of barium. FINDINGS: There are numerous bouts of penetration with intermittent trace aspiration noted with all consistenci es. Please see the speech pathologist report for full detail and feeding recommendations. IMPRESSION: Bouts of aspiration and penetration as above. POS: [facility]
[2018-03-11] MEDS: Lisinopril 20 MG TAB PO SCH (21:23)
[2018-03-12] MEDS: Clindamycin/D5W 600 MG in Premix Bag 1 BAG IVPB SCH ×3 (05:21→21:28)
[2018-03-12 06:03] LABS: Anion Gap 9 mmol/L (10-20); BUN (Urea Nitrogen) 13 mg/dL (8.4-25.7); Calc. Creatinine Clearance 90 mL/min (70-130); Calcium 8.8 mg/dL (7.8-10.44); Carbon Dioxide 29 mmol/L (23-31); Chloride 101 mmol/L (98-107); Estimated GFR-MDRD Greater than 90; Glucose 96 mg/dL (83-110); Potassium 3.9 mmol/L (3.5-5.1); Sodium 135 mmol/L (136-145)
[2018-03-12] MEDS: Carvedilol 25 MG TAB PO SCH ×2 (11:18→20:20)
[2018-03-12] MEDS: Enoxaparin Sodium 40 MG/0.4 ML SYRINGE SC SCH (11:19)
[2018-03-12] MEDS: carBAMazepine 100 mg Chewable Tablet PO SCH ×2 (13:00→20:20)
--- NOTE | 2018-03-12 13:55 | PRG ---
DATE OF SERVICE: 03/12/2018 SUBJECTIVE: The patient is doing much better. He is ambulating more. States his diet has improved. OBJECTIVE: VITAL SIGNS: Temperature 98.3, pulse 80, respirations 16, pulse ox 94, and blood pressure 136/73. HEART: Regular rate and rhythm. LUNGS: Relatively clear. Few right basilar rales. LABORATORY DATA: Blood sugar 98 and 96. ASSESSMENT: 1. Aspiration pneumonia/pneumonitis. 2. Dysphagia. 3. Failed swallow test. 4. Throat cancer. PLAN: 1. If the patient does well, plan to discharge home in the a.m. 2. Continue speech therapy treatment. 3. Continue IV antibiotics for now. Job ID: [id number]
[2018-03-12] MEDS: Lisinopril 20 MG TAB PO SCH (20:21)
[2018-03-13] MEDS: Clindamycin/D5W 600 MG in Premix Bag 1 BAG IVPB SCH (05:34)
[2018-03-13 07:17] VITALS: BP 149/73; TEMP 98.1
[2018-03-13] MEDS: carBAMazepine 100 mg Chewable Tablet PO SCH (08:58)
[2018-03-13] MEDS: Enoxaparin Sodium 40 MG/0.4 ML SYRINGE SC SCH (08:59)
[2018-03-13] MEDS: Carvedilol 25 MG TAB PO SCH (08:59)
--- NOTE | 2018-03-13 09:37 | PQF ---
SARAH GRACE DAVID R JR MD [id number]- [id number] CLINICAL DOCUMENTATION IMPROVEMENT CLARIFICATION FORM: ICD-10 Updated PLEASE DO AN ADDENDUM TO THE PROGRESS NOTE WITH ANY DOCUMENTATION UPDATES OR ADDITIONS AND CARRY THROUGH TO DC SUMMARY. THANK YOU. DATE: ATTN: DR. SAIDA MALDONADO Please exercise your independent, professional judgment in responding to the clarification form. Clinical indicators are provided on the bottom of this form for your review. Please check appropriate box(es): [ ] Sepsis due to: (Pna, UTI, gangrenous gall bladder, etc.) [ ] Localized infection without sepsis [ ] Other diagnosis [ ] Unable to determine For continuity of documentation, please document condition throughout progress notes and discharge summary. Thank You. CLINICAL INDICATORS - SIGNS / SYMPTOMS / LABS ER PRESENTATION 03/09: T: 100.6 (REPORTS 101.3 LAST NIGHT) HR: 101 RR : 24 RA SAT 89% > 2L: 100% ER PHYSICIAN DIAGNOSES: PNEUMONIA, SEPSIS RISK FACTORS: ASPIRATION PNEUMONIA DYSPHAGIA R/T HX THROAT CANCER TREATMENTS: IV ANTIBIOTICS (CLEOCIN & LEVAQUIN 03/09 - PRESENT) SPEECH CONSULT THANK YOU! Mayra (This form is maintained as a part of the permanent medical record) 2014 [employer]. All Rights Reserved Mayra Gauthier RN, BSN [email or web address] Office: [phone] [facility]
--- NOTE | 2018-03-13 12:27 | DIS ---
DATE OF ADMISSION: 03/09/2018 DATE OF DISCHARGE: 03/13/2018 DISCHARGE DIAGNOSES: 1. Sepsis. 2. Aspiration pneumonia. 3. Pneumonitis. 4. Throat cancer. 5. Failed swallow test. 6. Dysphagia. DISCHARGE MEDICATIONS: 1. Tegretol (carbamazepine) 100 p.o. b.i.d. 2. Coreg 25 p.o. b.i.d. 3. Lisinopril 20 daily. 4. Astelin nasal spray 2 sprays each nostril b.i.d. 5. Nasacort 1 spray each nostril daily. BRIEF HISTORY: This is a 77-year-old white male with history of throat cancer, status post chemo; who completed 1 course and is on a second optional round on. He is followed by [facility]. He also, in the past, received radiation treatment to his neck. Since then, he has had issues with dysphagia, odynophagia, and dehydration. However, he has improved significantly. He is on a modified diet with modified solids and nectar thick liquids. He has been receiving speech therapy at [facility]. He was seen in the emergency room with fever and with tachypnea and tachycardia with shortness of breath. CAT scan was obtained, which showed pneumonia and pneumonitis. HOSPITAL COURSE: The patient was started on Levaquin antibiotics and clindamycin. He has done well. His fever resolved. At this time, he is doing quite well. He is feeling better. His appetite has improved. The swallow test was performed, which revealed bouts of aspiration and penetration. However, the patient is adamant about eating. He has been eating. He is well aware that he has persistent aspiration. He is well aware that he is prone to recurrent pneumonia. He will be discharged today on Levaquin for an additional 10 days. He will follow up in the office next week. His final white count 5.9, H and H 9.8 and 29.6. Chest x-ray revealed left lower lobe pneumonia. Creatinine was 0.64, BUN was 13, and sodium 135. The patient right now is in the process of changing Speech Therapy from [facility] to [facility]. is very supportive and has been present throughout. We will continue to follow. Job ID: [id number]
== END 2018-03-13 13:13 | disposition home or self-care (01) | DRG 871 ==
LOC: ERS 13:49 → T4-B 15:31
PROVIDERS: ADMIT Family Medicine; ATTEND Family Medicine
DX: A41.9 Sepsis, unspecified organism (principal); J69.0 Pneumonitis due to inhalation of food and vomit; J18.9 Pneumonia, unspecified organism; Y95 Nosocomial condition; I10 Essential (primary) hypertension; Z87.891 Personal history of nicotine dependence; Z93.1 Gastrostomy status; R13.10 Dysphagia, unspecified; C14.0 Malignant neoplasm of pharynx, unspecified; G50.0 Trigeminal neuralgia
CPT/HCPCS: 36415; 71045; 71046; 71275; 74230; 80048; 80053; 81003; 83605; 85025; 85379; 87040; 87804; 96365; G8996-GN-CL; G8996-GN-CM; G8997-GN-CJ; J1650; J1956; J2543; J3490

== ENCOUNTER 2018-04-02 09:18 | Emergency (ER) | payer MEDICARE, OTHER ==
[2018-04-02 09:52] LABS: #Eosinphils 0.2 thou/uL (0.0-0.7); #Monocytes 0.8 thou/uL (0.11-0.59); #Neutrophils 6.8 thou/uL (1.40-6.50); %Basophils 0.1 % (0.0-1.0); %Eosinophils 1.9 % (0.0-10.0); %Lymphocytes 11.1 % (21.0-51.0); %Neutrophils 77.9 % (42.0-75.0); Hemoglobin 12.7 g/dL (14.0-18.0); Mean Corpuscular HGB CONC 33.6 g/dL (32.0-36.0); Mean Corpuscular Hemoglobin 29.6 pg (27.0-31.0); Mean Corpuscular Volume 88.2 fL (78.0-98.0); Mean Platelet Volume 7.8 fL (7.4-10.4); Platelet Count 143 thou/uL (130-400); RBC Distribution Width 13.6 % (11.5-14.5); White Blood Cell (WBC) Count 8.7 thou/uL (4.8-10.8)
[2018-04-02 10:21] LABS: ALT (SGPT) 15 U/L (8-55); AST (SGOT) 15 U/L (5-34); Albumin 4.1 g/dL (3.4-4.8); Alkaline Phosphatase 85 U/L (40-150); Anion Gap 14 mmol/L (10-20); BUN (Urea Nitrogen) 14 mg/dL (8.4-25.7); Bilirubin, Total 0.8 mg/dL (0.2-1.2); Calc. Creatinine Clearance 0 mL/min (70-130); Calcium 9.2 mg/dL (7.8-10.44); Carbon Dioxide 26 mmol/L (23-31); Chloride 99 mmol/L (98-107); Estimated GFR-MDRD Greater than 90; Globulin 3.7 g/dL (2.4-3.5); Glucose 110 mg/dL (83-110); Protein, Total 7.8 g/dL (5.8-8.1); Sodium 135 mmol/L (136-145)
--- NOTE | 2018-04-02 10:31 | RAD ---
CHEST 1 VIEW: HISTORY: Fever. Dyspnea. COMPARISON: 03/11/2018. FINDINGS: Cardiac silhouette is magnified by projection. Pulmonary vasculature is unremarkable. Mediastinum i s midline. Lung markings extend beyond the skin fold at the right lateral upper chest that mimics a pneumothorax. No confluent airspace consolidation or evidence of pneumothorax. hazardous substances engineer lead s overlie the chest. IMPRESSION: Stable radiographic appearance of the chest. No active cardiopulmonary abnormalities are demonstrate d. POS: [facility]
[2018-04-02 11:27] LABS: Bilirubin Negative (Negative); Blood, Urine Negative (Negative); Clarity CLEAR (Clear); Glucose, Urine (Dipstick) Negative (Negative); Leukocyte Small (Negative); Nitrite Negative (Negative); Protein, Urine (Dipstick) Trace mg/dL (Neg-Trace); Specific Gravity, Urine 1.023 (1.002-1.036)
[2018-04-02 11:30] LABS: Bacteria/HPF None Seen HPF (None Seen); Pathc Cast-AUWi Flag 1.45 (0-2.49); RBC/HPF 0-3 HPF (0-3)
[2018-04-02 11:52] LABS: Hyaline Casts/LPF 0-3 HYALINE CAST LPF (0-3 Hyaline)
--- NOTE | 2018-04-02 13:35 | CT ---
NONCONTRAST CT THORAX: DATE: 04/02/2018. HISTORY: Cough. Intermittent shortness of breath. COMPARISON: CTA thorax on 03/09/2018. FINDINGS: Again noted are reticulonodular and patchy parenchymal densities seen at the right lung base, and the reticulonodular densities have mildly increased from the prior exam. There has been interval develo pment of mild patchy and reticulonodular densities now present at the left lung base. There is mild peribronchial thickening present within each lung base greater on the right. Findings may be related to infectious or inflammatory process. Atypical infectious process is a possibility. Vascular calcification seen in the abdominal aorta involving the thoracic aorta and coronary arteries . There is a mildly enlarged subcarinal lymph node as well as a prominent pretracheal lymph node also s een on prior exam and may be reactive in origin. Filling defects are also again seen within the right lower lobe bronchi which may be related to mucus plugging or debris. Aspiration pneumonitis could not be entirely excluded. Mediastinal structures were not well evaluated without intravenous contrast. No other interval dorman e. Gastrostomy tube remains in place. IMPRESSION: 1. Persistent reticulonodular and patchy parenchymal opacities at the right lung base with interval development of patchy and reticulonodular densities at the left lung base. Findings could be related to infectious or inflammatory process. Atypical infectious process is a possibility. Followup to re solution of the bibasilar parenchymal and reticulonodular densities is recommended. 2. Filling defects within right lower lobe bronchi with peribronchial thickening. Findings may rela andrew to bronchiolitis and filling defects may be secondary to either mucus plugging or debris. Aspira tion pneumonitis cannot be excluded. 3. Mediastinal lymphadenopathy which may be reactive in origin. 4. Prominent vascular calcifications of the coronary arteries and thoracic aorta. 5. Stable tiny 4 mm pulmonary nodule in the region of the lingula with a stable nodular density at t he posterior aspect left upper lobe. There is also a stable tiny pulmonary nodule in the right upper lobe. POS: [facility]
== END 2018-04-02 15:05 | disposition home or self-care (01) ==
LOC: ERS 09:18
DX: J69.0 Pneumonitis due to inhalation of food and vomit (principal); I10 Essential (primary) hypertension; C14.0 Malignant neoplasm of pharynx, unspecified; Z87.891 Personal history of nicotine dependence; Z79.899 Other long term (current) drug therapy
CPT/HCPCS: 71045; 71250; 80053; 81003; 81015; 83605; 83880; 84484; 85025; 87040; 87804; 93005; 96360

== ENCOUNTER 2018-04-16 12:00 | Outpatient (CLI) | payer MEDICARE, OTHER | END 2018-04-16 12:01 | disposition home or self-care (01) | LOC: DTY/OP 12:00 | PROVIDERS: ATTEND Family Medicine | DX: R63.4 Abnormal weight loss (principal) | CPT/HCPCS: 97802 ==

== ENCOUNTER 2018-04-19 11:10 | Day surgery (SDC) | payer MEDICARE, OTHER ==
[2018-04-18 12:24] VITALS: BMI 19.2
[2018-04-19] MEDS ORDERED: PROPOFOL 200 MG/20 ML VIAL ONE (16:16)
[2018-04-19] MEDS ORDERED: Lidocaine 1% PF 5 ML VIAL ONE (16:16)
--- NOTE | 2018-04-21 13:49 | OP ---
DATE OF PROCEDURE: 04/19/2018 PROCEDURES PERFORMED: Esophagogastroduodenoscopy and dilatation. PREPROCEDURE DIAGNOSES: 1. 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 He has completed therapies December. 2. History of trigeminal neuralgia secondary to radiation therapy, . POSTPROCEDURE DIAGNOSES: 1. The esophagus and stomach were normal with a PEG tube placed in the retropharynx. There was quite a bit of fibrotic tissue with some brawny edema as well, all from radiation effect. It was difficult to pass the scope in the esophagus, but this was achieved, and dilation was performed from 14 mm to 16 mm over a guidewire solid food dysphagia, which just began more recently. ANESTHESIA: TIVA. PROCEDURE IN DETAIL: The patient was informed of the risks, benefits, possible complications of endoscopy including perforation, reaction to medication, and aspiration. Once he was comfortable, the endoscope was advanced to the esophagus through the bite block and then carefully through the pharynx. We had to manipulate the neck a little bit to get the scope passed down into the esophagus. The upper esophageal sphincter appeared normal as did the esophagus, the stomach and the duodenum in the 3rd portion. Retroflexed views were normal. A guidewire was placed. At that time, the patient started dropping oxygen saturation. The scope was removed and the patient was bagged by anesthesia. Once the saturations came to 100, the patient began spontaneous breathing. Again, the scope was reintroduced and a dilating wire was put down again and dilation was performed. The scope was removed. The patient tolerated the procedure well no complications. Job ID: [id number]
== END 2018-04-19 16:04 | disposition home or self-care (01) ==
LOC: SDC 11:10
PROVIDERS: ATTEND Internal Medicine Gastroenterology
PROC: 0D718ZZ Dilation of Upper Esophagus, Via Natural or Artificial Opening Endoscopic (ICD-10-PCS; principal; 2018-04-19)
DX: T66.XXXA Radiation sickness, unspecified, initial encounter (principal); R13.13 Dysphagia, pharyngeal phase; G50.0 Trigeminal neuralgia; I10 Essential (primary) hypertension; E78.5 Hyperlipidemia, unspecified; Z85.819 Personal history of malignant neoplasm of unspecified site of lip, oral cavity, and pharynx; Z87.891 Personal history of nicotine dependence; Z79.899 Other long term (current) drug therapy; Z93.1 Gastrostomy status
CPT/HCPCS: J2001; J2704

== ENCOUNTER 2018-05-21 10:46 | Outpatient (CLI) | payer MEDICARE, OTHER ==
--- NOTE | 2018-05-28 14:13 | RAD ---
MODIFIED BARIUM SWALLOW WITH SPEECH THERAPIST: Comparison: None. History: Unspecified dysphagia and feeding difficulties. FINDINGS/IMPRESSION: A modified barium swallow was performed by the speech therapist. A video was provided. Patient showed penetration with all consistencies without evidence of aspiration. Please see dedicated speech thera py report for findings and recommendations. POS: [facility]
== END 2018-05-21 10:47 | disposition home or self-care (01) ==
PROVIDERS: ATTEND Family Medicine
DX: R13.10 Dysphagia, unspecified (principal); R63.3 Feeding difficulties
CPT/HCPCS: 74230

== ENCOUNTER 2018-07-14 11:24 | Inpatient (IN) | payer MEDICARE ==
--- NOTE | 2018-07-14 11:49 | RAD ---
CHEST 1 VIEW: Date: 07/14/18 INDICATION: History of chest pain, fever, and sepsis. COMPARISON: Prior exam dated 04/02/18. FINDINGS: There is air space opacity involving the right lung base, suspicious for pneumonia. Left lung is josef r. No acute osseous abnormality is evident. IMPRESSION: Right lung base air space opacity suspicious for pneumonia. 2 view chest radiograph may be helpful fo r improved localization. This is suspected to be in the region of the right middle lobe. Left lung is clear. POS: [facility]
[2018-07-14] MEDS ORDERED: cefTRIAXone\\ROCEPHIN 2 GM VIAL ONE (12:09)
[2018-07-14] MEDS ORDERED: Acetaminophen 325 MG/10.15 ML UDCUP ONE (12:09)
[2018-07-14 12:16] LABS: ALT (SGPT) 18 U/L (8-55); AST (SGOT) 18 U/L (5-34); Albumin 3.6 g/dL (3.4-4.8); Alkaline Phosphatase 76 U/L (40-150); Anion Gap 12 mmol/L (10-20); BUN (Urea Nitrogen) 19 mg/dL (8.4-25.7); Bilirubin, Total 0.5 mg/dL (0.2-1.2); Calc. Creatinine Clearance 0 mL/min (70-130); Calcium 9.5 mg/dL (7.8-10.44); Carbon Dioxide 32 mmol/L (23-31); Chloride 96 mmol/L (98-107); Estimated GFR-MDRD Greater than 90; Globulin 4.8 g/dL (2.4-3.5); Glucose 108 mg/dL (83-110); Potassium 4.1 mmol/L (3.5-5.1); Protein, Total 8.4 g/dL (5.8-8.1); Sodium 136 mmol/L (136-145)
[2018-07-14 12:21] LABS: Band 21 % (5-11); Eosinophils 2 % (0-10); Hemoglobin 10.6 g/dL (14.0-18.0); Lymphocytes 14 % (21-51); MDiff Complete? YES; Mean Corpuscular HGB CONC 32.8 g/dL (32.0-36.0); Mean Corpuscular Hemoglobin 31.1 pg (27.0-31.0); Mean Corpuscular Volume 94.9 fL (78.0-98.0); Mean Platelet Volume 7.6 fL (7.4-10.4); Metamyelocyte 1 % (0-0); Monocytes 9 % (0-10); Neutrophil 53 % (42-75); Platelet Count 217 thou/uL (130-400); RBC Distribution Width 13.1 % (11.5-14.5); Toxic Granulation SLIGHT; White Blood Cell (WBC) Count 9.8 thou/uL (4.8-10.8)
[2018-07-14 12:48] LABS: Bilirubin Negative (Negative); Blood, Urine Negative (Negative); Clarity CLEAR (Clear); Glucose, Urine (Dipstick) Negative (Negative); Leukocyte Negative (Negative); Nitrite Negative (Negative); Protein, Urine (Dipstick) 30 mg/dL (Neg-Trace); Specific Gravity, Urine 1.019 (1.002-1.036)
[2018-07-14 12:51] LABS: Bacteria/HPF None Seen HPF (None Seen); Hyaline Casts/LPF 0-3 HYALINE CAST LPF (0-3 Hyaline); RBC/HPF 0-3 HPF (0-3); Squamous Epithelial 0-3 HPF (0-3); WBC/HPF None Seen HPF (0-3)
[2018-07-14 13:08] LABS: Troponin I Less than 0.010 ng/mL (< 0.028)
[2018-07-14] MEDS ORDERED: Azithromycin 500 MG VIAL ONE (13:41)
[2018-07-14 16:21] LABS: Troponin I Less than 0.010 ng/mL (< 0.028)
[2018-07-14 16:27] VITALS: BMI 22.7
[2018-07-14] MEDS ORDERED: Ondansetron PF 4 MG/2 ML Vial IVP PRN (16:44)
[2018-07-14] MEDS ORDERED: Ondansetron ODT 4 MG TAB SL PRN (16:44)
[2018-07-14] MEDS ORDERED: Acetaminophen 325 MG TAB PO PRN (16:44)
[2018-07-14] MEDS ORDERED: Vancomycin HCl 1 GM in Sodium Chloride 0.9% 250 ML 300 ML IVPB SCH (17:45)
[2018-07-14] MEDS ORDERED: Vancomycin HCl 1 GM in Premix Bag 1 BAG IVPB SCH (18:00)
[2018-07-14] MEDS: Piperacillin/Tazobactam 3.375 GM in Sodium Chloride 0.9% 100 ML IVPB SCH ×2 (18:06→23:26)
[2018-07-14 19:24] LABS: Troponin I Less than 0.010 ng/mL (< 0.028)
[2018-07-14] MEDS: Carvedilol 25 MG TAB PO SCH (20:19)
[2018-07-14] MEDS: Diabetic Tussin 200 MG/10 ML UDCUP PO SCH (20:19)
--- NOTE | 2018-07-14 23:56 | HP ---
PRIMARY CARE PHYSICIAN: Ray Valadez MD CHIEF COMPLAINT: Right-sided chest pain, cough, and weakness. HISTORY OF PRESENT ILLNESS: This is a 78-year-old gentleman with a history of hypertension, history of throat cancer last year treated with tonsillectomy and radiation immunotherapy, now with resultant persistent dysphagia with recurrent episodes of aspiration pneumonia. He was admitted in April and May in the past with episodes of aspiration pneumonia, which resolved. He was seen by Pulmonary as well as with speech therapy and adjustments were made in his swallowing. As of May or May of this year, he passed a swallow evaluation, even to thin liquids and was told that he could swallow whatever he wanted to. He had been drinking water since that point. The patient states that he has had on and off right-sided chest pains for the past 1 to 2 weeks, which would come and go. He had no other associated symptoms. No cough. No shortness of breath. No radiation of his pain. The symptoms would resolve spontaneously. About three days ago, he had had more episodes of the right-sided chest pain, which was sharp in nature. He had noticed that his cough had worsened, more of a productive deeper cough. No nausea or vomiting. states that he has been more weak over the past few days as well as temperature up to 101 two days ago. They are going to come in to be evaluated at Urgent Care yesterday, but due to the [employer] warnings, they stayed in the house and came to the emergency department today for evaluation. Today in the emergency department, he was found to have a right-sided pneumonia. It was felt that it was a community-acquired pneumonia and they started him on Rocephin and Zithromax. His antibiotics will be changed at this time due to his history of recurrent aspiration and his history of past episodes of aspiration pneumonia. PAST MEDICAL HISTORY: Throat cancer in 2018, hypertension. PAST SURGICAL HISTORY: Tonsillectomy, hip surgery, back surgery, PEG tube placement, status post radiation therapy, status post immunotherapy for his throat cancer. MEDICATIONS: Include carvedilol 25 mg b.i.d. SOCIAL HISTORY: He is . He quit smoking after smoking over 10 years. He lives at home. FAMILY HISTORY: Noncontributory. REVIEW OF SYSTEMS: As per the history of present illness with persistent fever and upper respiratory cough for the past few weeks. HEENT: No headache, visual or hearing changes. CARDIAC: No palpitations. PULMONARY: Positive cough. Positive shortness of breath. No hemoptysis. GI: Denies nausea, vomiting, abdominal pain, melena, hematochezia. : Denies dysuria, hematuria. NEUROLOGIC: No weakness, seizures, syncope. MUSCULOSKELETAL: Positive history of back pain and hip pains. PHYSICAL EXAMINATION: VITAL SIGNS: Temperature 98.8, pulse of 83, respirations 20 to 22, blood pressure 124/62, and pulse ox is 98% on room air. GENERAL: He is awake and alert. No acute distress. Speech is clear. Mucosa is moist. NECK: Supple. He has scars present. No bruits. HEART: Regular rate and rhythm. LUNGS: With rhonchi in the right base. No wheezes. No rales. ABDOMEN: Soft. PEG tube is in place. No signs of infection. EXTREMITIES: No clubbing, cyanosis, or edema. 2+ peripheral pulses bilaterally. LABORATORY DATA AND DIAGNOSTIC STUDIES: Sodium 136, potassium 4.1, chloride 96, CO2 of 32, BUN and creatinine 19 and 0.73, serum glucose of 108, lactic acid of 2.0. AST and ALT are normal. Troponin I is negative. White blood cell count normal at 9.8, hemoglobin and hematocrit 10.6 and 32.3, and platelets of 217. Urinalysis was negative. Chest x-ray revealed a right-sided infiltrate. ASSESSMENT AND PLAN: 1. This is a 78-year-old gentleman with remote history of throat cancer, status post radiation and immunotherapy and recurrent episodes of aspiration, now with another episode of aspiration pneumonia. 2. Aspiration pneumonia. We will change antibiotics to Zosyn and vancomycin for better Pseudomonas and Staph coverage due to his episodes of aspiration. 3. Aspiration. We will consult speech therapy for modified barium swallow to re-evaluate his swallowing ability and diet recommendations. 4. Hypertension is stable, on carvedilol. 5. Resuscitation status, he desires full code. Job ID: [id number]
[2018-07-15] MEDS: Piperacillin/Tazobactam 3.375 GM in Sodium Chloride 0.9% 100 ML IVPB SCH ×4 (05:41→23:43)
[2018-07-15 06:35] LABS: #Eosinphils 0.2 thou/uL (0.0-0.7); #Lymphocytes 1.6 thou/uL (1.20-3.40); #Monocytes 0.7 thou/uL (0.11-0.59); #Neutrophils 5.1 thou/uL (1.40-6.50); %Basophils 0.5 % (0.0-1.0); %Eosinophils 2.9 % (0.0-10.0); %Lymphocytes 20.9 % (21.0-51.0); %Monocytes 9.4 % (0.0-10.0); %Neutrophils 66.3 % (42.0-75.0); Hemoglobin 8.2 g/dL (14.0-18.0); Mean Corpuscular HGB CONC 32.3 g/dL (32.0-36.0); Mean Corpuscular Hemoglobin 30.8 pg (27.0-31.0); Mean Corpuscular Volume 95.3 fL (78.0-98.0); Mean Platelet Volume 7.7 fL (7.4-10.4); Platelet Count 198 thou/uL (130-400); RBC Distribution Width 13.1 % (11.5-14.5); Red Blood Cell (RBC) Count 2.68 mill/uL (4.70-6.10); White Blood Cell (WBC) Count 7.8 thou/uL (4.8-10.8)
--- NOTE | 2018-07-15 07:54 | RAD ---
EXAM: Single view of the chest HISTORY: Pneumonia COMPARISON: 07/14/2018 FINDINGS: Single view of the chest shows a normal sized cardiomediastinal silhouette. There is a deve loping area of airspace opacity in the right lower lobe. No pleural effusion is seen. Atherosclerotic coruscations are seen in the aorta. The bones are unremarkable. IMPRESSION: Right lower lobe pneumonia
[2018-07-15] MEDS: Sodium Chloride 0.9% 1,000 ML IV SCH (08:52)
[2018-07-15] MEDS: Carvedilol 25 MG TAB PO SCH ×3 (08:57→21:19)
[2018-07-15] MEDS: Diabetic Tussin 200 MG/10 ML UDCUP PO SCH ×3 (08:57→21:19)
[2018-07-15] MEDS: Albuterol Sulfate 1.25 MG/3 ML NEB NEB SCH ×2 (13:30→22:15)
--- NOTE | 2018-07-15 14:59 | PRG ---
DATE OF SERVICE: 07/15/2018 SUBJECTIVE: The patient was admitted yesterday for right-sided pneumonia due to aspiration. The patient has a long history of throat cancer. His complains that he just does not take any p.o. intake. She is feeding him protein shakes through his PEG tube. OBJECTIVE: VITAL SIGNS: T-max is 100.2, temperature now 98.2, pulse 79, respirations 18, pulse ox 93, and blood pressure 118/65. HEART: Regular rate and rhythm. LUNGS: Relatively clear. ABDOMEN: Soft. EXTREMITIES: With no edema. LABORATORY DATA: Labs none. ASSESSMENT: 1. Right-sided pneumonia. 2. Percutaneous endoscopic gastrostomy tube in place. 3. Throat cancer. 4. Hypertension. PLAN: 1. Swallow test today. 2. Try to advance diet. 3. Physical therapy. 4. Consider antidepressant. We will discuss further with the patient. Job ID: [id number]
[2018-07-15] MEDS ORDERED: Oseltamivir 75 MG CAP PO SCH (16:00)
[2018-07-15] MEDS: Vancomycin HCl 1 GM in Premix Bag 1 BAG IVPB SCH (16:22)
[2018-07-15] MEDS ORDERED: Acetaminophen 325 MG TAB PO PRN (21:15)
[2018-07-15] MEDS: Oseltamivir 75 MG CAP PO SCH (21:19)
[2018-07-16] MEDS: Vancomycin HCl 1 GM in Premix Bag 1 BAG IVPB SCH (04:05)
[2018-07-16] MEDS: Piperacillin/Tazobactam 3.375 GM in Sodium Chloride 0.9% 100 ML IVPB SCH ×2 (05:25→08:44)
[2018-07-16] MEDS: Albuterol Sulfate 1.25 MG/3 ML NEB NEB SCH (06:53)
[2018-07-16] MEDS ORDERED: Ferrous Sulfate 325 MG TAB PO SCH (08:00)
[2018-07-16 08:04] VITALS: BP 147/71; TEMP 98.2
[2018-07-16] MEDS: Carvedilol 25 MG TAB PO SCH (08:35)
[2018-07-16] MEDS: Oseltamivir 75 MG CAP PO SCH (08:35)
[2018-07-16] MEDS: Diabetic Tussin 200 MG/10 ML UDCUP PO SCH (08:35)
[2018-07-16] MEDS: Sodium Chloride 0.9% 1,000 ML IV SCH (08:44)
--- NOTE | 2018-07-16 11:41 | DIS ---
DATE OF ADMISSION: 07/14/2018 DATE OF DISCHARGE: 07/16/2018 DISCHARGE DIAGNOSES: 1. Right-sided pneumonia aspiration. 2. Percutaneous endoscopic gastrostomy tube in place. 3. Throat cancer. 4. Hypertension. 5. Influenza type B. DISCHARGE MEDICATIONS: 1. Tamiflu 75 p.o. b.i.d. x5 days. 2. Levaquin 500 one p.o. daily x10. 3. Coreg 25 p.o. b.i.d. 4. Aspirin 81 daily. BRIEF HISTORY: This is a 78-year-old white male with a history of hypertension and throat cancer, who presents with aspiration pneumonia. He has had multiple episodes of aspiration pneumonia. Previously, after following treatment for throat cancer with radiation, he developed difficulty swallowing. He was found to have failed barium swallow test. However, his last tests, he past. However, he has refused to eat by mouth over the past several months despite encouragement by his . Approximately 3 days prior, the patient had episode of right-sided chest pain, which was sharp. He noticed that he was developing cough, which was becoming progressively worse and markedly productive. He then developed a temperature of 101 and then presented to emergency room, where he was admitted for right-sided aspiration pneumonia. However, a flu swab was done and he was found to have a positive influenza type B. HOSPITAL COURSE: The patient was hydrated with IV fluids. He was started on vancomycin and Zosyn. His fever resolved. He did well. He continued to receive tube feeds via his PEG. He was receiving Nutren 5 to 7 cartons per day. He is now ready for discharge. I have encouraged him to eat orally. If he continues not eat orally, he may develop the inability to eat by mouth. Therefore, encouraged him to eat orally. He is to follow up in the office in 1 week. Be discharged with the medications above. Chest x-ray did confirm a right-sided aspiration pneumonia. His white count was noted to be 7.8 with H and H after IV fluids of 8.2 and 25.5. Electrolytes normal. Creatinine 0.73. Troponin 1 less than 0.010 x3. Urine was negative. Job ID: [id number]
== END 2018-07-16 10:37 | disposition home or self-care (01) | DRG 179 ==
LOC: ERS 11:24 → T4-B 12:41
PROVIDERS: ADMIT Family Medicine; ATTEND Family Medicine
DX: J69.0 Pneumonitis due to inhalation of food and vomit (principal); C14.0 Malignant neoplasm of pharynx, unspecified; I10 Essential (primary) hypertension; J10.1 Influenza due to other identified influenza virus with other respiratory manifestations; Z92.3 Personal history of irradiation; Z93.1 Gastrostomy status; Z90.89 Acquired absence of other organs; Z98.890 Other specified postprocedural states; Z87.891 Personal history of nicotine dependence
CPT/HCPCS: 36415; 71045; 80053; 81003; 81015; 83605; 84484; 85025; 87040; 87086; 87804; 93005; 94640; 96360; 96361; 96365; 96366; 96367; J0456; J0696; J2543; J3370; J3490; J7620

== ENCOUNTER 2020-04-15 12:36 | Inpatient (IN) | payer MEDICARE, OTHER ==
[2020-04-15] MEDS ORDERED: Cefepime 2 GM VIAL ONE (13:49)
[2020-04-15 14:01] LABS: #Lymphocytes 0.5 thou/uL (1.20-3.40); #Monocytes 1.2 thou/uL (0.11-0.59); %Eosinophils 0.2 % (0.0-10.0); %Lymphocytes 3.7 % (21.0-51.0); %Neutrophils 87.1 % (42.0-75.0); Hemoglobin 11.6 g/dL (14.0-18.0); Mean Corpuscular HGB CONC 32.2 g/dL (32.0-36.0); Mean Corpuscular Hemoglobin 29.6 pg (27.0-31.0); Mean Corpuscular Volume 91.8 fL (78.0-98.0); Mean Platelet Volume 7.8 fL (7.4-10.4); Platelet Count 159 thou/uL (130-400); RBC Distribution Width 12.4 % (11.5-14.5); Red Blood Cell (RBC) Count 3.93 mill/uL (4.70-6.10); White Blood Cell (WBC) Count 13.8 thou/uL (4.8-10.8)
[2020-04-15 14:13] LABS: Bacteria/HPF None Seen HPF (None Seen); Bilirubin Negative (Negative); Blood, Urine Negative (Negative); Clarity Clear (Clear); Glucose, Urine (Dipstick) Normal (Negative); Ketone, Urine Negative (Negative); Leukocyte Negative Leu/uL (Negative); Nitrite Negative (Negative); Protein, Urine (Dipstick) 30 mg/dL (Neg-Trace); RBC/HPF 0-3 HPF (0-3); Specific Gravity, Urine 1.026 (1.002-1.036); Squamous Epithelial 0-3 HPF (0-3); Urobilinogen 3 mg/dL (Less than 2); WBC/HPF 0-3 HPF (0-3)
--- NOTE | 2020-04-15 14:15 | RAD ---
EXAM: Single view of the chest HISTORY: Fever and cough COMPARISON: 07/15/2018; chest CT 04/02/2018 FINDINGS: Single view of the chest shows a normal sized cardiomediastinal silhouette. Atheroscleroti c calcifications are seen in the aorta. Consolidation is seen in the peripheral aspect of the right lower lobe. There may be subtle areas of opacity in the peripheral aspect of the left lower lob e. Degenerative changes are seen in the spine. IMPRESSION: Right lower lobe infiltrate
[2020-04-15 14:19] LABS: ALT (SGPT) 19 U/L (8-55); AST (SGOT) 20 U/L (5-34); Albumin 3.5 g/dL (3.4-4.8); Alkaline Phosphatase 64 U/L (40-110); Anion Gap 13 mmol/L (10-20); BUN (Urea Nitrogen) 26 mg/dL (8.4-25.7); Bilirubin, Total 0.6 mg/dL (0.2-1.2); Calc. Creatinine Clearance 0 mL/min (70-130); Calcium 9.1 mg/dL (7.8-10.44); Carbon Dioxide 27 mmol/L (23-31); Chloride 102 mmol/L (98-107); Globulin 3.4 g/dL (2.4-3.5); Glucose 124 mg/dL (83-110); Potassium 4.4 mmol/L (3.5-5.1); Protein, Total 6.9 g/dL (5.8-8.1); Sodium 138 mmol/L (136-145)
[2020-04-15 14:34] LABS: SARS-CoV-2 NAA Rapid Test Not Detected (NotDetected)
--- NOTE | 2020-04-15 15:51 | PDOC.HHP ---
Hospitalist HPI - History of Present Illness SOB History of Present Illness: Mr. 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 Patient sees Dr. Ray Cid who sent him into the emergency room. Patient reports that approximately 13 days ago he developed cough shortness of breath and subjective fevers. PCP put him on a 10-day course of Levaquin which he completed, however symptoms quickly returned and patient had worsening fevers and cough. Patient was trialed on 3 days of clindamycin which he also has failed. Patient reports productive cough with thick yellow sputum. He denies chest pain or palpitations. Denies abdominal pain, nausea vomiting diarrhea. Denies numbness weakness or paresthesias. No known Covid exposures. Patient and his report that they have been extremely cautious avoiding all possible contact given patient's medical history. In emergency room initial vital signs 118/66, 94, 99.8, 95% on room air. Chest x-ray showed a right lower lobe infiltrate. WBC 13.8. H/H 11.6/36.1. Lactic acid 2.2. BUN/CR 26/0.90. Sodium 138, potassium 4.4. Covid negative. Hospitalist ROS - Review of Systems Constitutional: reports: fever, chills, weakness, malaise Eyes: denies: pain, vision change, conjunctivae inflammation, eyelid inflammation, redness, other ENT: denies: ear pain, ear discharge, nose pain, nose discharge, nose congestion, mouth pain, mouth swelling, throat pain, throat swelling, other Respiratory: reports: cough, shortness of breath, SOB with excertion, sputum Cardiovascular: denies: chest pain, palpitations, orthopnea, paroxysmal noc. dyspnea, edema, light headedness, other Gastrointestinal: denies: nausea, vomiting, abdominal pain, diarrhea, constipation, melena, hematochezia, other Genitourinary: denies: dysuria, frequency, incontinence, hematuria, retention, other Musculoskeletal: denies: neck pain, shoulder pain, arm pain, back pain, hand pain, leg pain, foot pain, other Skin: denies: rash, lesions, michele, bruising, other Neurological: denies: weakness, numbness, incoordination, change in speech, confusion, seizures, other - Medication Medications: Medications include Carvedilol Prednisolone Moxifloxacin Hospitalist History - Past Medical History Other Medical History: Past medical history includes Hypertension Throat cancer status post radiation Chronic dysphagia with aspirationpatient has had multiple TEXTILE CONVERTER studies and work- up. Patient and family have frequently discussed risk versus benefits of eating, and patient and family have decided to continue to eat eat at patient's discretion understanding the risks. No known drug allergies - Past Surgical History Other Surgical History: Past surgical history includes Right hip surgery Back surgery Tonsils PEG placement Cataract surgery - Family History Other Family History: No pertinent family history - Social History Smoking Status: Former smoker (Quit over 10 years ago) Tobacco Type: cigarettes Alcohol: reports: None Drugs: reports: none Living Situation: With Family Activity level: independent ambulation - Exam General Appearance: NAD, awake alert Eye: PERRL, anicteric sclera ENT: normocephalic atraumatic, no oropharyngeal lesions, moist mucosa Heart: RRR, no murmur, no gallops, no rubs, normal peripheral pulses Respiratory: no wheezes, normal chest expansion, no tachypnea Respiratory - other findings: Crackles to right lower lung cervantes Gastrointestinal: soft, non-tender, non-distended, normal bowel sounds, no palpable masses, no hepatomegaly, no splenomegaly, no bruit Extremities: no cyanosis, no clubbing, no edema Skin: normal turgor, no lesions, no rashes Neurological: cranial nerve grossly intact, normal sensation to touch, no weakness, no focal deficits, no new deficit Musculoskeletal: normal tone, normal strength, no muscle wasting Psychiatric: normal affect Hospitalist Results - Labs Result Diagrams: 04/20/20 05:46 04/20/20 05:46 Lab results: WBC 13.8 thou/uL (4.8-10.8) H 04/15/20 13:48 Hgb 11.6 g/dL (14.0-18.0) L 04/15/20 13:48 Hct 36.1 % (42.0-52.0) L 04/15/20 13:48 MCV 91.8 fL (78.0-98.0) 04/15/20 13:48 Plt Count 159 thou/uL (130-400) 04/15/20 13:48 Neutrophils % 87.1 % (42.0-75.0) H 04/15/20 13:48 Sodium 138 mmol/L (136-145) 04/15/20 13:48 Potassium 4.4 mmol/L (3.5-5.1) 04/15/20 13:48 Chloride 102 mmol/L (98-107) 04/15/20 13:48 Carbon Dioxide 27 mmol/L (23-31) 04/15/20 13:48 BUN 26 mg/dL (8.4-25.7) H 04/15/20 13:48 Creatinine 0.90 mg/dL (0.7-1.3) 04/15/20 13:48 Glucose 124 mg/dL (83-110) H 04/15/20 13:48 Lactic Acid 2.2 mmol/L (0.5-2.2) 04/15/20 13:48 Calcium 9.1 mg/dL (7.8-10.44) 04/15/20 13:48 Total Bilirubin 0.6 mg/dL (0.2-1.2) 04/15/20 13:48 AST 20 U/L (5-34) 04/15/20 13:48 ALT 19 U/L (8-55) 04/15/20 13:48 Alkaline Phosphatase 64 U/L (40-110) 04/15/20 13:48 Serum Total Protein 6.9 g/dL (5.8-8.1) 04/15/20 13:48 Albumin 3.5 g/dL (3.4-4.8) 04/15/20 13:48 Urine Ketones Negative mg/dL (Negative) 04/15/20 14:01 Urine Blood Negative (Negative) 04/15/20 14:01 Urine Nitrite Negative (Negative) 04/15/20 14:01 Ur Leukocyte Esterase Negative Lio/uL (Negative) 04/15/20 14:01 Urine RBC 0-3 HPF (0-3) 04/15/20 14:01 Urine WBC 0-3 HPF (0-3) 04/15/20 14:01 Ur Squamous Epith Cells 0-3 HPF (0-3) 04/15/20 14:01 Urine Bacteria None Seen HPF (None Seen) 04/15/20 14:01 Hospitalist H&P A/P - Plan Plan: Aspiration Pneumonia 79-year-old male with past medical history of chronic dysphagia status post throat cancer with radiation with recurrent aspiration pneumonia admitted for failed outpatient antibiotics for suspected aspiration pneumonia. Chest x-ray showed right lower lobe infiltrate. Patient febrile with elevated white blood cell count. COVID-19 negative. Patient failed outpatient Levaquin and clindamycin. Received IV cefepime in emergency room. Will start patient on vanc and zosyn for aerobic and MRSA coverage since patient has a history of recurrent aspiration pneumonia. Plan Vanc, zosyn Sputum culture Urine Legionella, strep pneumo Mucinex, Tylenol as needed Trend white blood cell count, fever curve Consider ID consult if clinical course does not improve on IV abx Sepsis without septic shock Patient meets sepsis criteria with tachycardia, elevated white blood cell count to 13.8, elevated lactic acid to 2.2. Patient received IV cefepime. Will cover with IV vanc, zosyn for aspiration pneumonia. Blood cultures drawn. Blood pressure stable at this time. Plan IV fluids, antibiotics as above Trend WBC, fever curve, lactic acid Follow blood cultures Chronic dysphagia secondary to throat cancer in remission Patient with history of chronic daily dysphagia secondary to throat cancer and radiation. Patient has had extensive work-up for his dysphagia with speech therapy and barium swallow studies. Patient is family has had multiple ethical discussions with medical team and have declined TEXTILE CONVERTER work-up at this time. Patient does have a PEG tube in place, but also takes p.o. Plan Tube feeds as needed Regular diet, at discretion of patient and family Patient declined TEXTILE CONVERTER evaluation or further work-up at this time S/p corneal transplant Recent corneal transplant on steroid and antibiotic eyedrops. We will continue these during admission. Hypertension History of hypertension, will continue home carvedilol if blood pressure allows. DVT prophylaxisLovenox Full codeMDM is patient's Case discussed with attending physicia, Dr. Montoya
[2020-04-15] MEDS ORDERED: Guaifenesin DM 100-10/5 ML UDCUP PO PRN (16:23)
[2020-04-15] MEDS ORDERED: Ondansetron PF 4 MG/2 ML Vial IVP PRN (16:23)
[2020-04-15] MEDS ORDERED: Ondansetron ODT 4 MG TAB PO PRN (16:23)
[2020-04-15] MEDS ORDERED: Acetaminophen 650 MG Suppository PR PRN (16:23)
[2020-04-15] MEDS ORDERED: Albuterol Sulfate 2.5 mg/3 ml Neb NEB PRN (16:31)
[2020-04-15] MEDS ORDERED: Ampicillin/Sulbactam 3 GM in Sodium Chloride 0.9% 100 ML IVPB SCH (16:45)
[2020-04-15 16:59] LABS: Lactic Acid 1.9 mmol/L (0.5-2.2)
[2020-04-15] MEDS: Sodium Chloride 0.9% 1,000 ML IV SCH (18:22)
[2020-04-15] MEDS: Piperacillin/Tazobactam 4.5 GM in Sodium Chloride 0.9% 100 ML IVPB SCH (18:23)
[2020-04-15 18:37] VITALS: BMI 21.3
[2020-04-15 19:24] LABS: Legionella Urinary Ag Negative (Negative); Strep pneumo Urine Ag NEGATIVE (NEGATIVE)
[2020-04-15] MEDS: Carvedilol 25 MG TAB PO SCH (20:30)
[2020-04-15] MEDS: prednisoLONE 1% Ophth Susp 5 ml Bottle R EYE SCH (20:30)
[2020-04-15] MEDS: Vancomycin HCl 1.25 GM in Sodium Chloride 0.9% 250 ML 250 ML IVPB SCH (20:31)
[2020-04-15] MEDS: Moxifloxacin 0.5% Opth Drop 3 ML BOT R EYE SCH (20:35)
[2020-04-15] MEDS ORDERED: prednisoLONE Acet 0.12% Ophth Soln 5 ml Bottle L EYE SCH ×3 (21:00)
[2020-04-15] MEDS ORDERED: Moxifloxacin 0.5% Opth Drop 3 ML BOT L EYE SCH ×3 (21:00)
[2020-04-16] MEDS ORDERED: Piperacillin/Tazobactam 4.5 GM VIAL ONE (00:39)
[2020-04-16] MEDS: Piperacillin/Tazobactam 4.5 GM in Sodium Chloride 0.9% 100 ML IVPB SCH ×5 (00:42→23:52)
[2020-04-16] MEDS: Sodium Chloride 0.9% 1,000 ML IV SCH ×4 (05:14→23:53)
[2020-04-16 05:38] LABS: #Lymphocytes 0.9 thou/uL (1.20-3.40); #Monocytes 0.8 thou/uL (0.11-0.59); %Basophils 0.1 % (0.0-1.0); %Eosinophils 0.4 % (0.0-10.0); %Lymphocytes 8.6 % (21.0-51.0); %Monocytes 7.3 % (0.0-10.0); %Neutrophils 83.6 % (42.0-75.0); Hemoglobin 9.5 g/dL (14.0-18.0); Mean Corpuscular HGB CONC 32.8 g/dL (32.0-36.0); Mean Corpuscular Hemoglobin 30.3 pg (27.0-31.0); Mean Corpuscular Volume 92.5 fL (78.0-98.0); Mean Platelet Volume 7.7 fL (7.4-10.4); Platelet Count 134 thou/uL (130-400); RBC Distribution Width 12.4 % (11.5-14.5); Red Blood Cell (RBC) Count 3.14 mill/uL (4.70-6.10); White Blood Cell (WBC) Count 10.7 thou/uL (4.8-10.8)
[2020-04-16 06:04] LABS: Anion Gap 13 mmol/L (10-20); BUN (Urea Nitrogen) 19 mg/dL (8.4-25.7); Calc. Creatinine Clearance 69 mL/min (70-130); Calcium 8.2 mg/dL (7.8-10.44); Carbon Dioxide 27 mmol/L (23-31); Chloride 105 mmol/L (98-107); Glucose 94 mg/dL (83-110); Potassium 4.1 mmol/L (3.5-5.1); Sodium 141 mmol/L (136-145)
[2020-04-16] MEDS ORDERED: Aspirin Chewable 81 MG TAB PO SCH (09:00)
[2020-04-16] MEDS: Enoxaparin Sodium 40 MG/0.4 ML SYRINGE SC SCH (09:50)
[2020-04-16] MEDS: Pantoprazole 40 MG VIAL IVP SCH (09:50)
[2020-04-16] MEDS: Carvedilol 25 MG TAB PO SCH ×2 (09:50→21:16)
[2020-04-16] MEDS: prednisoLONE 1% Ophth Susp 5 ml Bottle R EYE SCH ×3 (10:16→21:16)
[2020-04-16] MEDS: Moxifloxacin 0.5% Opth Drop 3 ML BOT R EYE SCH ×2 (10:17→21:16)
[2020-04-16] MEDS ORDERED: Iopamidol-370 76% 500 ML 1 ML ONE (10:38)
--- NOTE | 2020-04-16 12:12 | CT ---
CT Chest W Con History: Throat cancer. Hemoptysis Comparison: CT chest April 2018 Findings: Airspace opacities throughout the right upper, middle and few foci right upper lobe consoli dation. No suspicious pulmonary nodules. No pneumothorax. Mild scattered emphysema. Few mildly prominent pretracheal lymph nodes have not grown from 2019. No pathologically enlarged ramone nopathy. Gastric tube is present in the gastric body. Aortic contour is nonaneurysmal. Thoracic spine is intact with numerous superior and inferior endplate Schmorl's nodes. No acute fract ure. Sternum and manubrium are intact. Perifissural nodule along the left major fissure axial image 22 has not grown. Sludge in the gallbladder. Impression: Findings of multifocal predominantly right-sided pneumonia. Follow-up after treatment rec ommended. No suspicious pulmonary nodules are appreciated nor pathologically enlarged lymph nodes.
--- NOTE | 2020-04-16 13:13 | CT ---
CT NECK SOFT TISSUES WITH CONTRAST: Date: 04/16/2020 HISTORY: 79-year-old male with head and neck cancer presents with hemoptysis and epistaxis. Evaluate for nohemy jo. COMPARISON: 04/26/2017. FINDINGS: The previously demonstrated large infiltrating, enhancing malignant neoplastic tumor mass of the left side of the pharyngeal mucosal space involving the left side of the oropharynx, left lingual tonsil, and left supraglottic larynx, has resolved. The previously demonstrated multiple metastatic bilateral cervical lymph nodes are no longer present. There is diffuse edema with increased mucosal enhancement of the entire larynx and hypopharynx, repre senting post radiation mucositis. There has been interval worsening of atherosclerotic calcification of bilateral carotid bifurcations and proximal internal carotids. There is also mild soft tissue density material around the bilateral common carotid arteries which co uld represent post radiation changes or carotidynia. New mild fat stranding throughout the retropharyngeal space representing post radiation changes. Inte rval development of atrophy of the parotid glands and severe atrophy of the submandibular glands, all representing post radiation changes. Centrilobular emphysematous changes throughout the lung apices. Severe, approximately 75%, opacification of right sphenoid air cell is a new finding since prior stud y, due to occlusion at the right sphenoethmoidal recess. Contralateral left sphenoid air cell, and the rest of the paranasal sinuses, are grossly clear. Bilat eral tympanomastoid cavities are grossly clear. No nasopharyngeal mass. No cervical lymphadenopathy. No thyromegaly. Trachea is patent and clear. Unremarkable visual manager spaces and orbits. IMPRESSION: 1. 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 2. Diffuse post radiation changes throughout the neck. 3. No compelling evidence of recurrent or residual malignant neoplastic activity. 4. Acceleration of atherosclerotic disease (presumably due to radiation) involving bilateral proxima l internal carotid arteries, with high grade stenosis, especially on the right. 5. Occlusive sinusopathy of right sphenoid air cell. POS: JANNIE
--- NOTE | 2020-04-16 14:16 | PDOC.HOSPP ---
- Subjective Encounter Date: 04/16/20 Encounter Time: 12:00 Subjective: has cough with brown sputum and hemoptysis, no fever at bedside no sob last f/u with his cancer specialist in [place] was in march with CT chest and neck ( has carmita with results) - Objective Vital Signs & Weight: Vital Signs (12 hours) Temp Pulse Resp BP Pulse Ox 04/16/20 11:00 97.8 F 81 18 131/63 99 04/16/20 07:49 98 F 81 18 130/76 93 L 04/16/20 04:08 98.0 F 79 18 110/64 94 L Weight Admit Weight 148 lb 12.96 oz Weight 148 lb 12.96 oz I&O: 04/15/20 04/16/20 04/17/20 06:59 06:59 06:59 Intake Total 125 1610 Output Total 125 400 Balance 0 1210 Result Diagrams: 04/16/20 05:25 04/16/20 05:25 Hospitalist ROS - Medication Medications: Active Medications Generic Name Dose Route Start Last Admin Trade Name Freq PRN Reason Stop Dose Admin Aspirin 81 mg 04/16/20 09:00 04/16/20 09:49 Aspirin Chewable 81 Mg Tab PO 81 mg QAM AI Administration Carvedilol 25 mg 04/15/20 21:00 04/16/20 09:50 Carvedilol 25 Mg Tab PO 25 mg BID AI Administration Enoxaparin Sodium 40 mg 04/16/20 09:00 04/16/20 09:50 Enoxaparin Sodium 40 Mg/0.4 Ml Syringe SC 40 mg 0900 AI Administration Vancomycin HCl 1.25 gm/ Sodium 250 mls @ 166.667 mls/hr 04/15/20 20:00 04/15/20 20:31 Chloride IVPB 250 mls 2000 AI Administration Piperacillin Sod/Tazobactam 100 mls @ 200 mls/hr 04/15/20 18:00 04/16/20 13:09 Sod 4.5 gm/ Sodium Chloride IVPB 100 mls Q6HR AI Administration Sodium Chloride 1,000 mls @ 125 mls/hr 04/15/20 17:00 04/16/20 10:20 Normal Saline 0.9% IV 1,000 mls .Q8H AI Administration Ondansetron HCl 4 mg 04/15/20 16:23 04/15/20 18:22 Ondansetron Pf 4 Mg/2 Ml Vial IVP 4 mg Q6H PRN Administration Nausea/Vomiting Pantoprazole Sodium 40 mg 04/16/20 09:00 04/16/20 09:50 Pantoprazole 40 Mg Vial IVP 40 mg DAILY AI Administration Prednisolone 1% 0 each 04/15/20 21:00 04/16/20 10:16 Ophth Susp 5 Ml R EYE 1 each Bottle TID AI Administration Moxifloxacin 0.5% 0 each 04/15/20 21:00 04/16/20 10:17 Opth Drop 3 Ml Bot R EYE Not Given BID AI - Exam General Appearance: awake alert Eye: PERRL, anicteric sclera ENT: no oropharyngeal lesions, dry oral mucosa Neck: supple, no JVD Heart: RRR, no murmur Respiratory: no wheezes, rales, rhonchi Gastrointestinal: soft, non-tender, non-distended, normal bowel sounds Extremities: no cyanosis, no edema Neurological: cranial nerve grossly intact, no focal deficits Psychiatric: normal affect, A&O x 3 Hosp A/P (1) Aspiration pneumonia Code(s): J69.0 - PNEUMONITIS DUE TO INHALATION OF FOOD AND VOMIT Status: Acute Qualifiers: Aspiration pneumonia type: due to regurgitated food Laterality: right (2) Cough with hemoptysis Code(s): R04.2 - HEMOPTYSIS Status: Acute (3) h/o throat cancer Status: Chronic (4) Dysphagia Code(s): R13.10 - DYSPHAGIA, UNSPECIFIED Status: Chronic Qualifiers: Dysphagia type: oropharyngeal phase Qualified Code(s): R13.12 - Dysphagia, oropharyngeal phase (5) h/o peg Status: Chronic (6) Chronic anemia Code(s): D64.9 - ANEMIA, UNSPECIFIED Status: Chronic (7) Carotid stenosis, bilateral Code(s): I65.23 - OCCLUSION AND STENOSIS OF BILATERAL CAROTID ARTERIES Status: Acute - Plan has failed outpt levaquin x 10 days then clindamycin for 3 days prior to arrival currently on vanc and zosyn CT chest and neck results noted has b/l high grade carotid stenosis, no neuro deficits now. h/o prior radiation to neck for throat cancer/ tonsillectomy, immuno and chemotherapy...in remission x 3 years per patient had [id number] f/u with [facility], now has been switched to [id number] due to remission nebs, coreg. Will hold aspirin due to hemoptysis. await CTS and ID recommendation hemostable d/w and patient at bedside
--- NOTE | 2020-04-16 18:08 | CON ---
DATE OF CONSULTATION: 04/16/2020 CONSULT REASON: Aspiration pneumonia. HISTORY OF PRESENT ILLNESS: A 79-year-old, history of head and neck cancer, treated with chemoradiation therapy, which he completed in 2019 at [facility]. He has had problems with aspiration pneumonias which persisted until 2019, mostly or exclusively on the right lower lung. For some reason they seized, I think because he stopped eating via mouth and just getting all his nutrition by G-tube. He had a recent followup at [facility] and he was cleared from cancer and he did have a CT of chest on March 17 which showed ground-glass changes in the left base, but clear right base and then about 13 years before admission he developed cough with fever. He was treated with levofloxacin by Dr. Valadez with improvement and then recrudescence of symptoms and he end up readmitted. The chest x-ray shows a right lower lobe infiltrate and I think he did have a CT scan of the chest, which resulted and it showed multifocal predominantly right-sided pneumonia. The opacities are seen in the right upper middle and a few foci in the right upper lobe, but not much in the left. Currently, Mr. Parker is sitting in bed. Head side of the bed is elevated. His does most of the talking. Denies any headaches. No sore throat. He has chronic nasal symptoms from rhinosinusitis. Has had sphenoid sinusitis diagnosed in the past. Has had some epistaxis where thick bloody secretions from the right nostril. No dyspnea. No chest pain. Cough is still there with some sputum production. No abdominal pain. G-tube is working fine. He has no genitourinary symptoms. No diarrhea or constipation. No hematemesis or melena. No joint symptoms. No neurological symptoms. PAST MEDICAL HISTORY: Head and neck cancer. Hypertension. The head and neck cancer is in remission. Corneal transplant. He did have keratitis which most likely was due to the immunotherapy for the head and neck cancer. Recurrent aspiration pneumonias, last episode was in 2019 and he had not had any until now. SURGICAL HISTORY: G-tube placement, laminectomy, hip surgery, cataract and corneal transplant. SOCIAL HISTORY: Lives with . He used to drink up till May 20. Former smoker, quit more than 10 years ago. ALLERGIES: NONE. CURRENT MEDICATIONS: Include; 1. Ventolin. 2. Coreg. 3. Lovenox. 4. Robitussin. 5. Moxifloxacin eye drops. 6. Protonix. 7. Zosyn 4.5 g q.6. 8. Vancomycin. PHYSICAL EXAMINATION: VITAL SIGNS: Temperature max 99, BP 120/72, heart rate 96, respirations 18, and O2 saturation 100. SKIN: Shows the G-tube with no inflammatory changes. He has a peripheral IV access and is voiding in the toilet. No lymphadenopathy. HEENT: Ocular movements conjugate. Quite a few teeth in place with fairly decent shape. Oral cavity and mucosa normal. Has a deviated septum. LUNGS: With crackles in the right base. No wheezing. HEART: S1, S2. Regular rate without murmurs. No S3 or S4. ABDOMEN: Soft. Not distended or tender. No ascites. No bladder distention. MUSCULOSKELETAL: No joint inflammatory activity. No edema. Pulses 1+ in dorsalis pedis. Moves extremities equally. NEUROLOGIC: Cognitive function appears to be intact and chemistry is fairly unremarkable. LABORATORY STUDIES: White cell count is 13.8 down to 10.7, hemoglobin 9.5, platelets 134, 83% neutrophils. Urinalysis was normal with a few minor abnormalities. SARS-CoV-2 RT PCR negative. ASSESSMENT: 1. Head and neck cancer in remission, but with sequelae from the treatment particularly radiation therapy with quite pronounced swallowing dysfunction and aspiration. 2. Recurrent episodes of aspiration pneumonia which ceased around 2019 and now it is the first one in about 3 years. He was treated in the outpatient setting with levofloxacin with now recrudescence of pneumonia. DISCUSSION: The differential diagnosis includes aspiration pneumonia from nocturnal aspiration since he lays flat in bed or from his sinuses with the usual pathogens. Lately, the epidemiology of aspiration pneumonia has demonstrated a predominance of gram-negative rods and not so much anaerobes anymore. I think that the Zosyn should work for him and we will continue following the clinical course. As preventive measures, I think he should get a bed that will allow him to sleep with the head side of the bed elevated at least 30 degrees and manage his rhinosinusitis with more frequent irrigation. Regarding SARS-CoV-2, his PCR was negative. I think the infiltrative changes are more typical of aspiration bacterial pneumonia rather than SARS-CoV. He was vaccinated about a week ago and go ahead and check his antibody levels in view of high prevalence of disease with COVID-19. We always have to be careful in ruling out on the basis of a single negative PCR, but we will see what the antibody levels show. Job ID: [id number]
[2020-04-16] MEDS: Albuterol Sulfate 2.5 mg/3 ml Neb NEB SCH ×2 (18:28→18:39)
[2020-04-16] MEDS: Acetaminophen 325 MG TAB PO PRN (21:11)
[2020-04-16] MEDS: Vancomycin HCl 1.25 GM in Sodium Chloride 0.9% 250 ML 250 ML IVPB SCH (21:30)
[2020-04-17] MEDS ORDERED: Vancomycin HCl 1.25 GM in Sodium Chloride 0.9% 250 ML 250 ML IVPB SCH (06:00)
[2020-04-17 06:13] LABS: #Eosinphils 0.1 thou/uL (0.0-0.7); #Lymphocytes 0.7 thou/uL (1.20-3.40); #Monocytes 0.6 thou/uL (0.11-0.59); #Neutrophils 4.8 thou/uL (1.40-6.50); %Basophils 0.3 % (0.0-1.0); %Eosinophils 1.8 % (0.0-10.0); %Lymphocytes 10.5 % (21.0-51.0); %Monocytes 9.4 % (0.0-10.0); Hemoglobin 8.6 g/dL (14.0-18.0); Mean Corpuscular HGB CONC 33.1 g/dL (32.0-36.0); Mean Corpuscular Hemoglobin 30.7 pg (27.0-31.0); Mean Corpuscular Volume 92.7 fL (78.0-98.0); Mean Platelet Volume 7.8 fL (7.4-10.4); Platelet Count 120 thou/uL (130-400); RBC Distribution Width 12.2 % (11.5-14.5); Red Blood Cell (RBC) Count 2.81 mill/uL (4.70-6.10); White Blood Cell (WBC) Count 6.2 thou/uL (4.8-10.8)
[2020-04-17] MEDS: Piperacillin/Tazobactam 4.5 GM in Sodium Chloride 0.9% 100 ML IVPB SCH ×4 (06:29→23:45)
[2020-04-17 06:31] LABS: Anion Gap 11 mmol/L (10-20); BUN (Urea Nitrogen) 15 mg/dL (8.4-25.7); Calc. Creatinine Clearance 82 mL/min (70-130); Calcium 7.9 mg/dL (7.8-10.44); Carbon Dioxide 28 mmol/L (23-31); Chloride 107 mmol/L (98-107); Glucose 93 mg/dL (83-110); Potassium 4.2 mmol/L (3.5-5.1); Sodium 142 mmol/L (136-145)
[2020-04-17] MEDS: Albuterol Sulfate 2.5 mg/3 ml Neb NEB SCH ×4 (08:16→18:49)
[2020-04-17] MEDS: Carvedilol 25 MG TAB PO SCH ×2 (10:04→20:09)
[2020-04-17] MEDS: Pantoprazole 40 MG VIAL IVP SCH (10:04)
[2020-04-17] MEDS: prednisoLONE 1% Ophth Susp 5 ml Bottle R EYE SCH ×3 (10:05→20:09)
[2020-04-17] MEDS: Moxifloxacin 0.5% Opth Drop 3 ML BOT R EYE SCH ×2 (10:05→20:09)
[2020-04-17] MEDS: Sodium Chloride 0.9% 1,000 ML IV SCH ×2 (11:04→18:30)
--- NOTE | 2020-04-17 11:51 | PDOC.HOSPP ---
- Subjective Encounter Date: 04/17/20 Encounter Time: 11:50 Subjective: Mr. Parker was seen today in follow-up of pneumonia. He has a cough, but this is chronic and unchanged. He denies feeling short of breath. His fever is better. He notes some runny stools, which are more loose than with his tube feeds at home. - Objective Vital Signs & Weight: Vital Signs (12 hours) Temp Pulse Resp BP Pulse Ox 04/17/20 08:16 74 12 04/17/20 07:49 98.2 F 74 20 127/60 94 L 04/17/20 03:04 97.9 F 75 16 118/60 94 L Weight Admit Weight 148 lb 12.96 oz Weight 148 lb 12.96 oz I&O: 04/16/20 04/17/20 04/18/20 06:59 06:59 06:59 Intake Total 125 3280 1827 Output Total 125 1100 Balance 0 2180 1827 Result Diagrams: 04/17/20 05:56 04/17/20 05:56 Hospitalist ROS - Medication Medications: Active Medications Generic Name Dose Route Start Last Admin Trade Name Freq PRN Reason Stop Dose Admin Acetaminophen 650 mg 04/15/20 16:23 04/16/20 21:11 Acetaminophen 325 Mg Tab PO 650 mg Q4H PRN Administration Headache/Fever/Mild Pain (1-3) Albuterol Sulfate 2.5 mg 04/16/20 15:00 04/17/20 08:16 Albuterol Sulfate 2.5 Mg/3 Ml Neb NEB 2.5 mg [id number] AI Administration Carvedilol 25 mg 04/15/20 21:00 04/17/20 10:04 Carvedilol 25 Mg Tab PO 25 mg BID AI Administration Enoxaparin Sodium 40 mg 04/16/20 09:00 04/16/20 09:50 Enoxaparin Sodium 40 Mg/0.4 Ml Syringe SC 40 mg 0900 AI Administration Piperacillin Sod/Tazobactam 100 mls @ 200 mls/hr 04/15/20 18:00 04/17/20 11:04 Sod 4.5 gm/ Sodium Chloride IVPB 100 mls Q6HR AI Administration Sodium Chloride 1,000 mls @ 125 mls/hr 04/15/20 17:00 04/17/20 11:04 Normal Saline 0.9% IV 1,000 mls .Q8H AI Administration Ondansetron HCl 4 mg 04/15/20 16:23 04/15/20 18:22 Ondansetron Pf 4 Mg/2 Ml Vial IVP 4 mg Q6H PRN Administration Nausea/Vomiting Pantoprazole Sodium 40 mg 04/16/20 09:00 04/17/20 10:04 Pantoprazole 40 Mg Vial IVP 40 mg DAILY AI Administration Prednisolone 1% 0 each 04/15/20 21:00 04/17/20 10:05 Ophth Susp 5 Ml R EYE 1 each Bottle TID AI Administration Moxifloxacin 0.5% 0 each 04/15/20 21:00 04/17/20 10:05 Opth Drop 3 Ml Bot R EYE 1 each BID AI Administration - Exam Eye: PERRL, anicteric sclera Heart: RRR, no gallops, no rubs, normal peripheral pulses, murmur present, II/IV Respiratory: rales (faint rales at the right base, no rhonchi or wheezing) Gastrointestinal: soft, non-tender, non-distended, normal bowel sounds, no palpa ble masses, no hepatomegaly Extremities: no cyanosis (+ palpable d.p. pulses), 1+ LE edema Hosp A/P (1) Diarrhea Code(s): R19.7 - DIARRHEA, UNSPECIFIED Status: Acute (2) Aspiration pneumonia Code(s): J69.0 - PNEUMONITIS DUE TO INHALATION OF FOOD AND VOMIT Status: Acute Qualifiers: Aspiration pneumonia type: due to regurgitated food Laterality: right (3) Carotid stenosis, bilateral Code(s): I65.23 - OCCLUSION AND STENOSIS OF BILATERAL CAROTID ARTERIES Status: Acute (4) Dysphagia Code(s): R13.10 - DYSPHAGIA, UNSPECIFIED Status: Chronic Qualifiers: Dysphagia type: oropharyngeal phase Qualified Code(s): R13.12 - Dysphagia, oropharyngeal phase (5) h/o throat cancer Status: Chronic - Plan * Aspiration Pneumonia- continue Zosyn- sputum cultures are pending * Dysphagia- due to throat cancer, and post radiation changes- 99% of his nutritional needs are via the PEG tube * HTN- blood pressure is stable- continue Carvediolol * Diarrhea- he has been on antibiotics for some time, and had a round of Leva juan, and a few days of Clindamycin prior to admission- will check a C. Diff screen * Thrombocytopenia- his platelet have been on the lower side in the past- will monitor, and hold Lovenox for now- SCD's for DVT prophylaxis
[2020-04-17] MEDS: Enoxaparin Sodium 40 MG/0.4 ML SYRINGE SC SCH (12:05)
--- NOTE | 2020-04-17 12:24 | CON ---
DATE OF CONSULTATION: 04/17/2020 REQUESTING PHYSICIAN: Dr. Ramirez. PRIMARY CARE PHYSICIAN: Dr. Ray Valadez. CHIEF COMPLAINT: Productive cough. 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 Initially, he apparently had a lot of problems with pneumonia, consistent with an aspiration pneumonia, but those have largely resolved until this hospitalization. He was being treated for right lower lobe pneumonia as an outpatient, but did not adequately improve with quinolones and clindamycin, and was admitted to the hospital. He is currently on Zosyn and vancomycin and is reasonably comfortable. He underwent CT scanning of his chest and of his neck. Adenopathy consistent with metastatic disease that had been seen on his previous neck CT had since resolved, but there has been progression of calcification in his carotid arteries, particularly on the right side. The patient has never had a stroke. He has not had any facial, speech, or extremity symptoms consistent with TIAs. His vision from problems complicating a right-sided cataract extraction and a left cataract that is still in situ determining issues about amaurosis fugax a little bit problematic. The patient apparently has a known carotid stenosis and his showed me records from checkups at [facility] that included a carotid ultrasound from about mid 2019 that showed velocity changes consistent with a 50% to 69% stenosis involving the right carotid artery with internal carotid velocities peaking in the mid 200 cm/second range. His left carotid velocities and ratios were normal, consistent with less than 50% stenosis. Because of problems related to his cataracts as well as some problems related to what sounds like a hip hemiarthroplasty from decades ago and then the COVID pandemic, a followup on his carotid disease has been put on the back burner. PAST MEDICAL HISTORY: Significant for hypertension. He has a PEG. HOME MEDICATIONS: 1. Moxifloxacin eyedrops. 2. Prednisolone eyedrops. 3. Baby aspirin is listed as daily, but the told me he takes it every other day. 4. Coreg 25 mg b.i.d. His home medications have been continued. He has been started on Zosyn and vancomycin and DVT prophylaxis with Lovenox. IV Protonix has been added as part of GI prophylaxis. ALLERGIES: HE DENIES ANY MEDICAL ALLERGIES. SOCIAL HISTORY: The patient quit smoking about 10 years ago. REVIEW OF SYSTEMS: Notable for his visual problems discussed in the HPI, but he denies any TIA symptoms, denies any chest pain. He has had recurrent problems with aspiration pneumonia. PHYSICAL EXAMINATION: GENERAL: He is in no distress. His current temperature is 98.2, but his T-max was 100.9 last night. Heart rate is 74, blood pressure 127/60. He is 5 feet 10 inches, weighs 149 pounds. NECK: He has woody edema of his neck. At the base of the neck, the tissues become more normal. There is no obvious thinning of the skin or telangiectasia on that skin. He has no carotid bruits. CHEST: Clear to auscultation. HEART: He has a regular rate and rhythm. NEUROLOGIC: Other than difficulty with his vision that apparently is primarily an ocular issue, cranial nerves 2 through 12 seem to be intact as does upper and lower extremity strength. LABORATORY DATA: His white count has fallen from 13.8 to 6.2, hemoglobin has gone from 11.6 to 8.6, platelets are 120,000. He has normal electrolytes, BUN 26, creatinine 0.9. LFTs are normal. Albumin 3.5. His chest x-ray shows right lower lobe infiltrate and it is confirmed by CT scanning. CT scanning of his neck with IV contrast, but not done as a CTA, shows very dense bulky calcification of the right carotid bulb, extending into the proximal internal carotid artery. There are certainly areas that at least suggest high-grade stenosis. The calcifications and compromise of the lumen on the left are much more modest. IMPRESSION AND RECOMMENDATIONS: The patient has no transient ischemic attack symptoms. He may very well have had marked progression of his carotid disease, but I would be rather reluctant to pursue invasive management in an asymptomatic patient who has had head and neck radiation with skin and tissue changes such as what he has. It might even be arguable that there is no point in following his carotids as long as he remains asymptomatic. I offered them the option of following up here or returning to follow up in [place]. They live in [place] and neither place is particularly convenient for them. Job ID: [id number]
--- NOTE | 2020-04-17 14:22 | EKG ---
Test Reason : Blood Pressure : / mmHG Vent. Rate : 097 BPM Atrial Rate : 097 BPM P-R Int : 142 ms QRS Dur : 076 ms QT Int : 326 ms P-R-T Axes : 037 013 038 degrees QTc Int : 414 ms Normal sinus rhythm Normal ECG Confirmed by VICK CASANOVA DO ([id number]), associate editor ROSENDO CHRISTOPHER ([id number]) on 04/17/2020 2:22:26 PM Referred By: Confirmed By:VICK CASANOVA DO
[2020-04-17 18:11] LABS: SARS-CoV-2 IgG Ab Non-Reactive (NonReactive); SARS-CoV-2 IgG Index 0.05 S/CO (< 1.40)
[2020-04-17 19:37] LABS: Vancomycin, Trough 4.8 ug/mL
[2020-04-17] MEDS: Vancomycin HCl 1.25 GM in Sodium Chloride 0.9% 250 ML 250 ML IVPB SCH (20:48)
[2020-04-18] MEDS: Acetaminophen 325 MG TAB PO PRN (00:36)
[2020-04-18] MEDS: Sodium Chloride 0.9% 1,000 ML IV SCH ×3 (04:23→17:45)
[2020-04-18] MEDS: Piperacillin/Tazobactam 4.5 GM in Sodium Chloride 0.9% 100 ML IVPB SCH ×4 (05:20→23:48)
[2020-04-18 07:54] LABS: #Eosinphils 0.2 thou/uL (0.0-0.7); #Lymphocytes 0.6 thou/uL (1.20-3.40); #Monocytes 0.4 thou/uL (0.11-0.59); #Neutrophils 2.1 thou/uL (1.40-6.50); %Basophils 0.2 % (0.0-1.0); %Monocytes 10.8 % (0.0-10.0); Hemoglobin 9.6 g/dL (14.0-18.0); Mean Corpuscular HGB CONC 32.3 g/dL (32.0-36.0); Mean Corpuscular Hemoglobin 30.4 pg (27.0-31.0); Mean Corpuscular Volume 94.3 fL (78.0-98.0); Mean Platelet Volume 7.7 fL (7.4-10.4); Platelet Count 130 thou/uL (130-400); RBC Distribution Width 12.2 % (11.5-14.5); Red Blood Cell (RBC) Count 3.15 mill/uL (4.70-6.10); White Blood Cell (WBC) Count 3.2 thou/uL (4.8-10.8)
[2020-04-18 08:15] LABS: Anion Gap 11 mmol/L (10-20); BUN (Urea Nitrogen) 9 mg/dL (8.4-25.7); Calc. Creatinine Clearance 85 mL/min (70-130); Calcium 8.2 mg/dL (7.8-10.44); Carbon Dioxide 29 mmol/L (23-31); Chloride 105 mmol/L (98-107); Glucose 89 mg/dL (83-110); Potassium 3.7 mmol/L (3.5-5.1); Sodium 141 mmol/L (136-145)
[2020-04-18] MEDS: Albuterol Sulfate 2.5 mg/3 ml Neb NEB SCH ×4 (08:42→19:26)
[2020-04-18] MEDS: Vancomycin 1 GM in Premix Bag 1 BAG IVPB SCH ×2 (09:11→20:48)
[2020-04-18] MEDS: Pantoprazole 40 MG VIAL IVP SCH (09:12)
[2020-04-18] MEDS: Saccharomyces boulardii 250 MG CAP PO SCH (09:12)
[2020-04-18] MEDS: Carvedilol 25 MG TAB PO SCH ×2 (09:12→20:46)
[2020-04-18] MEDS: Enoxaparin Sodium 40 MG/0.4 ML SYRINGE SC SCH (09:13)
[2020-04-18] MEDS: prednisoLONE 1% Ophth Susp 5 ml Bottle R EYE SCH ×3 (09:55→20:48)
[2020-04-18] MEDS: Moxifloxacin 0.5% Opth Drop 3 ML BOT R EYE SCH ×2 (09:55→20:48)
--- NOTE | 2020-04-18 12:07 | PDOC.HOSPP ---
- Subjective Encounter Date: 04/18/20 Encounter Time: 12:04 Subjective: Mr. Parker was seen today in follow-up of pneumonia. He is feeling better. His major complaint is a stuffy congested nose, and diarrhea. He denies feeling short of breath, and is breathing comfortably without supplemental oxygen - Objective Vital Signs & Weight: Vital Signs (12 hours) Temp Pulse Resp BP Pulse Ox 04/18/20 10:52 78 16 91 L 04/18/20 08:42 78 16 91 L 04/18/20 08:07 97.7 F 77 18 167/69 H 91 L 04/18/20 04:12 97.8 F 74 18 144/74 H 94 L 04/18/20 00:27 101.0 F H 87 18 136/70 92 L Weight Admit Weight 148 lb 12.96 oz Weight 148 lb 12.96 oz I&O: 04/17/20 04/18/20 04/19/20 06:59 06:59 06:59 Intake Total 3280 3957 Output Total 1100 Balance 2180 3957 Result Diagrams: 04/18/20 07:34 04/18/20 07:34 Hospitalist ROS - Medication Medications: Active Medications Generic Name Dose Route Start Last Admin Trade Name Freq PRN Reason Stop Dose Admin Acetaminophen 650 mg 04/15/20 16:23 04/18/20 00:36 Acetaminophen 325 Mg Tab PO 650 mg Q4H PRN Administration Headache/Fever/Mild Pain (1-3) Albuterol Sulfate 2.5 mg 04/16/20 15:00 04/18/20 10:52 Albuterol Sulfate 2.5 Mg/3 Ml Neb NEB 2.5 mg [id number] AI Administration Carvedilol 25 mg 04/15/20 21:00 04/18/20 09:12 Carvedilol 25 Mg Tab PO 25 mg BID AI Administration Enoxaparin Sodium 40 mg 04/16/20 09:00 04/18/20 09:13 Enoxaparin Sodium 40 Mg/0.4 Ml Syringe SC 40 mg 0900 AI Administration Guaifenesin/Dextromethorphan 15 ml 04/15/20 16:23 04/18/20 00:37 Guaifenesin Dm 100-10/5 Ml Udcup PO 15 ml Q4H PRN Administration Cough Piperacillin Sod/Tazobactam 100 mls @ 200 mls/hr 04/15/20 18:00 04/18/20 05:20 Sod 4.5 gm/ Sodium Chloride IVPB 100 mls Q6HR AI Administration Sodium Chloride 1,000 mls @ 125 mls/hr 04/15/20 17:00 04/18/20 05:21 Normal Saline 0.9% IV 1,000 mls .Q8H AI Administration Vancomycin HCl 1.25 gm/ Sodium 250 mls @ 166.667 mls/hr 04/17/20 20:00 04/17/20 20:48 Chloride IVPB Not Given 2000 AI Vancomycin HCl 1 gm/ Device 200 mls @ 200 mls/hr 04/18/20 09:00 04/18/20 09:11 IVPB 200 mls Q12HR AI Administration Ondansetron HCl 4 mg 04/15/20 16:23 04/15/20 18:22 Ondansetron Pf 4 Mg/2 Ml Vial IVP 4 mg Q6H PRN Administration Nausea/Vomiting Pantoprazole Sodium 40 mg 04/16/20 09:00 04/18/20 09:12 Pantoprazole 40 Mg Vial IVP 40 mg DAILY AI Administration Prednisolone 1% 0 each 04/15/20 21:00 04/18/20 09:55 Ophth Susp 5 Ml R EYE 1 each Bottle TID AI Administration Moxifloxacin 0.5% 0 each 04/15/20 21:00 04/18/20 09:55 Opth Drop 3 Ml Bot R EYE 1 each BID AI Administration Saccharomyces Boulardii 250 mg 04/18/20 09:00 04/18/20 09:12 Saccharomyces Boulardii 250 Mg Cap PO 250 mg DAILY AI Administration - Exam Eye: PERRL, anicteric sclera Heart: RRR, no murmur, no gallops, no rubs, normal peripheral pulses Respiratory: rales (faint rales at the bases) Gastrointestinal: soft, non-tender, non-distended, normal bowel sounds, no palp able masses, no hepatomegaly Extremities: no cyanosis, no clubbing (pulses are palpable), 1+ LE edema Hosp A/P (1) Aspiration pneumonia Code(s): J69.0 - PNEUMONITIS DUE TO INHALATION OF FOOD AND VOMIT Status: Acute Qualifiers: Aspiration pneumonia type: due to regurgitated food Laterality: right (2) Diarrhea Code(s): R19.7 - DIARRHEA, UNSPECIFIED Status: Acute (3) Carotid stenosis, bilateral Code(s): I65.23 - OCCLUSION AND STENOSIS OF BILATERAL CAROTID ARTERIES Status: Acute (4) Dysphagia Code(s): R13.10 - DYSPHAGIA, UNSPECIFIED Status: Chronic Qualifiers: Dysphagia type: oropharyngeal phase Qualified Code(s): R13.12 - Dysphagia, oropharyngeal phase (5) h/o throat cancer Status: Chronic - Plan * Aspiration Pneumonia- continue Zosyn- sputum cultures are pending AFB smears are negative- continue Zosyn, and await recommendations from ID. I suspect he will be ready for discharge soon * Dysphagia- due to throat cancer, and post radiation changes- 99% of his nutritional needs are via the PEG tube * HTN- blood pressure is stable- continue Carvediolol * Diarrhea- C. Diff screen was negative- will treat symptomatically with Imodium, and continue Florastor * Thrombocytopenia- his platelet have been on the lower side in the past- will monitor, and hold Lovenox for now- SCD's for DVT prophylaxis
[2020-04-18] MEDS: Vancomycin HCl 1.25 GM in Sodium Chloride 0.9% 250 ML 250 ML IVPB SCH (21:19)
[2020-04-18] MEDS: Loperamide HCl 2 MG CAP PO PRN (22:44)
[2020-04-19] MEDS: Loperamide HCl 2 MG CAP PO PRN (00:44)
[2020-04-19] MEDS: Sodium Chloride 0.9% 1,000 ML IV SCH ×3 (02:22→09:24)
[2020-04-19] MEDS: Piperacillin/Tazobactam 4.5 GM in Sodium Chloride 0.9% 100 ML IVPB SCH ×2 (05:13→12:57)
[2020-04-19 05:21] LABS: #Eosinphils 0.2 thou/uL (0.0-0.7); #Lymphocytes 0.5 thou/uL (1.20-3.40); #Monocytes 0.3 thou/uL (0.11-0.59); #Neutrophils 1.8 thou/uL (1.40-6.50); %Basophils 0.4 % (0.0-1.0); %Eosinophils 7.1 % (0.0-10.0); %Lymphocytes 18.6 % (21.0-51.0); %Monocytes 11.9 % (0.0-10.0); %Neutrophils 61.9 % (42.0-75.0); Hemoglobin 8.7 g/dL (14.0-18.0); Mean Corpuscular HGB CONC 32.1 g/dL (32.0-36.0); Mean Corpuscular Hemoglobin 29.7 pg (27.0-31.0); Mean Corpuscular Volume 92.3 fL (78.0-98.0); Mean Platelet Volume 7.5 fL (7.4-10.4); Platelet Count 133 thou/uL (130-400); RBC Distribution Width 12.2 % (11.5-14.5); Red Blood Cell (RBC) Count 2.93 mill/uL (4.70-6.10); White Blood Cell (WBC) Count 2.8 thou/uL (4.8-10.8)
[2020-04-19 05:45] LABS: Anion Gap 9 mmol/L (10-20); BUN (Urea Nitrogen) 9 mg/dL (8.4-25.7); Calc. Creatinine Clearance 85 mL/min (70-130); Calcium 8.2 mg/dL (7.8-10.44); Carbon Dioxide 31 mmol/L (23-31); Chloride 105 mmol/L (98-107); Glucose 91 mg/dL (83-110); Potassium 3.8 mmol/L (3.5-5.1); Sodium 141 mmol/L (136-145)
[2020-04-19] MEDS: Albuterol Sulfate 2.5 mg/3 ml Neb NEB SCH ×2 (06:39→10:19)
[2020-04-19 08:10] LABS: Vancomycin, Trough 12.8 ug/mL
[2020-04-19] MEDS ORDERED: Vancomycin HCl 1.25 GM in Sodium Chloride 0.9% 250 ML 250 ML IVPB SCH (09:00)
[2020-04-19] MEDS: Carvedilol 25 MG TAB PO SCH ×2 (09:18→20:36)
[2020-04-19] MEDS: Saccharomyces boulardii 250 MG CAP PO SCH (09:19)
[2020-04-19] MEDS: prednisoLONE 1% Ophth Susp 5 ml Bottle R EYE SCH ×3 (09:21→20:36)
[2020-04-19] MEDS: Moxifloxacin 0.5% Opth Drop 3 ML BOT R EYE SCH ×2 (09:21→20:36)
[2020-04-19] MEDS: Pantoprazole 40 MG VIAL IVP SCH (09:22)
[2020-04-19] MEDS: Enoxaparin Sodium 40 MG/0.4 ML SYRINGE SC SCH (09:23)
[2020-04-19] MEDS: Fluticasone Propionate Nasal Spray 16 gm Bottle NASAL SCH (10:11)
[2020-04-19] MEDS ORDERED: Albuterol Sulfate 2.5 mg/3 ml Neb NEB PRN (11:30)
--- NOTE | 2020-04-19 13:03 | PDOC.HOSPP ---
- Subjective Encounter Date: 04/19/20 Encounter Time: 13:01 Subjective: Mr. Parker was seen today in follow-up of pneumonia. He says the diarrhea he had has improved. He denies dyspnea, continues to have a cough. - Objective Vital Signs & Weight: Vital Signs (12 hours) Temp Pulse Resp BP Pulse Ox 04/19/20 11:06 98.1 F 81 20 155/79 H 93 L 04/19/20 08:39 98.8 F 81 20 163/82 H 92 L 04/19/20 04:27 98.4 F 79 18 156/72 H 92 L Weight Admit Weight 148 lb 12.96 oz Weight 148 lb 12.96 oz I&O: 04/18/20 04/19/20 04/20/20 06:59 06:59 06:59 Intake Total 3957 2840 Balance 3957 2840 Result Diagrams: 04/19/20 05:08 04/19/20 05:08 Hospitalist ROS - Medication Medications: Active Medications Generic Name Dose Route Start Last Admin Trade Name Freq PRN Reason Stop Dose Admin Acetaminophen 650 mg 04/15/20 16:23 04/18/20 00:36 Acetaminophen 325 Mg Tab PO 650 mg Q4H PRN Administration Headache/Fever/Mild Pain (1-3) Carvedilol 25 mg 04/15/20 21:00 04/19/20 09:18 Carvedilol 25 Mg Tab PO 25 mg BID AI Administration Enoxaparin Sodium 40 mg 04/16/20 09:00 04/19/20 09:23 Enoxaparin Sodium 40 Mg/0.4 Ml Syringe SC 40 mg 0900 AI Administration Fluticasone Propionate 1 gm 04/19/20 09:00 04/19/20 10:11 Fluticasone Propionate Nasal [place] 16 Gm Bottle NASAL 1 spr DAILY AI Administration Guaifenesin/Dextromethorphan 15 ml 04/15/20 16:23 04/18/20 00:37 Guaifenesin Dm 100-10/5 Ml Udcup PO 15 ml Q4H PRN Administration Cough Piperacillin Sod/Tazobactam 100 mls @ 200 mls/hr 04/15/20 18:00 04/19/20 12:57 Sod 4.5 gm/ Sodium Chloride IVPB 100 mls Q6HR AI Administration Sodium Chloride 1,000 mls @ 125 mls/hr 04/15/20 17:00 04/19/20 09:24 Normal Saline 0.9% IV Not Given .Q8H AI Vancomycin HCl 1.25 gm/ Sodium 250 mls @ 166.667 mls/hr 04/19/20 09:00 04/19/20 10:12 Chloride IVPB 250 mls Q12HR AI Administration Loperamide HCl 2 mg 04/18/20 12:03 04/19/20 00:44 Loperamide Hcl 2 Mg Cap PO 2 mg PRN PRN Administration Diarrhea/Loose Stools Ondansetron HCl 4 mg 04/15/20 16:23 04/15/20 18:22 Ondansetron Pf 4 Mg/2 Ml Vial IVP 4 mg Q6H PRN Administration Nausea/Vomiting Pantoprazole Sodium 40 mg 04/16/20 09:00 04/19/20 09:22 Pantoprazole 40 Mg Vial IVP 40 mg DAILY AI Administration Prednisolone 1% 0 each 04/15/20 21:00 04/19/20 13:00 Ophth Susp 5 Ml R EYE 1 each Bottle TID AI Administration Moxifloxacin 0.5% 0 each 04/15/20 21:00 04/19/20 09:21 Opth Drop 3 Ml Bot R EYE 1 each BID AI Administration Saccharomyces Boulardii 250 mg 04/18/20 09:00 04/19/20 09:19 Saccharomyces Boulardii 250 Mg Cap PO 250 mg DAILY AI Administration - Exam Eye: PERRL, anicteric sclera Heart: RRR, no murmur, no gallops, no rubs, normal peripheral pulses Respiratory: rales (+ rales in the right base) Gastrointestinal: soft, non-tender, non-distended, normal bowel sounds, no palpable masses, no hepatomegaly Extremities: no cyanosis, no edema (good distal pulses) Hosp A/P (1) Aspiration pneumonia Code(s): J69.0 - PNEUMONITIS DUE TO INHALATION OF FOOD AND VOMIT Status: Acute Qualifiers: Aspiration pneumonia type: due to regurgitated food Laterality: right (2) Diarrhea Code(s): R19.7 - DIARRHEA, UNSPECIFIED Status: Acute (3) Carotid stenosis, bilateral Code(s): I65.23 - OCCLUSION AND STENOSIS OF BILATERAL CAROTID ARTERIES Status: Acute (4) Dysphagia Code(s): R13.10 - DYSPHAGIA, UNSPECIFIED Status: Chronic Qualifiers: Dysphagia type: oropharyngeal phase Qualified Code(s): R13.12 - Dysphagia, oropharyngeal phase (5) h/o throat cancer Status: Chronic - Plan * Aspiration Pneumonia- Discussed with Dr. Yoo. Will switch him to Levaquin and Flagyl * Dysphagia- due to throat cancer, and post radiation changes- 99% of his nu tritional needs are via the PEG tube * HTN- blood pressure is stable- continue Carvediolol * Diarrhea- C. Diff screen was negative- symptomatic management * Thrombocytopenia- his platelet have been on the lower side in the past- will monitor, and hold Lovenox for now- SCD's for DVT prophylaxis
--- NOTE | 2020-04-19 15:02 | PRG ---
DATE OF SERVICE: 04/19/2020 SUBJECTIVE: Mr. Parker is feeling better. He does not have any respiratory symptoms. No pain. No abdominal pain or diarrhea. His neuro status is stable. He is awake, alert, oriented. He has been afebrile for the past 2 days. He had 101 on April 18, and is saturating at 93%, he was 96% before that. OBJECTIVE: GENERAL: He is awake. He is not in distress, oriented by the bedside. LUNGS: With inspiratory crackles in the right side as previously noted. No wheezing. HEART: S1 and S2, regular rate. ABDOMEN: Soft, not distended. EXTREMITIES: Moves all extremities equally. Cognitive function is perfectly fine. LABORATORY DATA: His SARS-CoV index IgG was 0.05, which is nonreactive, it is a quite low titer. The previous PCR was negative on the . His white cell count is 2.8, hemoglobin 8.7, platelets 133 with 61% neutrophils and a chemistry was 0.67. Microbiology; C difficile negative, acid-fast negative. Two blood cultures negative. ASSESSMENT AND DISCUSSION: Head and neck cancer in remission, but sequelae from treatment, particularly radiation therapy with pronounced swallowing dysfunction and aspiration with recurrent episodes, sinusitis with sphenoid involvement. At this point, I would consider discharge planning with oral quinolone plus Flagyl for maybe another 7 to 10 days. Elevate head side of the bed at night when sleeping and manage sinusitis with irrigation, Flonase and Zyrtec. He is at risk for recurrence of aspiration pneumonia since those preventive measures are not perfect. We will be glad to follow them up in the outpatient setting. Repeat chest x-ray done. Job ID: [id number] [facility] INSANESandra
[2020-04-19] MEDS: metroNIDAZOLE 500 MG TAB PER TUBE SCH ×2 (16:13→20:36)
[2020-04-20] MEDS: Loperamide HCl 2 MG CAP PO PRN (04:16)
[2020-04-20 06:05] LABS: #Eosinphils 0.2 thou/uL (0.0-0.7); #Lymphocytes 0.5 thou/uL (1.20-3.40); #Monocytes 0.3 thou/uL (0.11-0.59); #Neutrophils 1.7 thou/uL (1.40-6.50); %Basophils 0.5 % (0.0-1.0); %Eosinophils 6.6 % (0.0-10.0); %Lymphocytes 19.1 % (21.0-51.0); %Monocytes 11.2 % (0.0-10.0); %Neutrophils 62.5 % (42.0-75.0); Hemoglobin 9.5 g/dL (14.0-18.0); Mean Corpuscular HGB CONC 31.6 g/dL (32.0-36.0); Mean Corpuscular Hemoglobin 28.9 pg (27.0-31.0); Mean Corpuscular Volume 91.5 fL (78.0-98.0); Mean Platelet Volume 7.2 fL (7.4-10.4); Platelet Count 173 thou/uL (130-400); RBC Distribution Width 12.3 % (11.5-14.5); Red Blood Cell (RBC) Count 3.29 mill/uL (4.70-6.10); White Blood Cell (WBC) Count 2.7 thou/uL (4.8-10.8)
[2020-04-20 06:25] LABS: Anion Gap 12 mmol/L (10-20); BUN (Urea Nitrogen) 10 mg/dL (8.4-25.7); Calc. Creatinine Clearance 85 mL/min (70-130); Calcium 8.5 mg/dL (7.8-10.44); Carbon Dioxide 30 mmol/L (23-31); Chloride 103 mmol/L (98-107); Glucose 89 mg/dL (83-110); Potassium 3.9 mmol/L (3.5-5.1); Sodium 141 mmol/L (136-145)
[2020-04-20] MEDS: metroNIDAZOLE 500 MG TAB PER TUBE SCH ×2 (08:51→14:48)
[2020-04-20] MEDS: Enoxaparin Sodium 40 MG/0.4 ML SYRINGE SC SCH (08:51)
[2020-04-20] MEDS: Carvedilol 25 MG TAB PO SCH (08:51)
[2020-04-20] MEDS: Fluticasone Propionate Nasal Spray 16 gm Bottle NASAL SCH (08:51)
[2020-04-20] MEDS: Pantoprazole 40 MG VIAL IVP SCH (08:51)
[2020-04-20] MEDS: Saccharomyces boulardii 250 MG CAP PO SCH (08:51)
[2020-04-20] MEDS: prednisoLONE 1% Ophth Susp 5 ml Bottle R EYE SCH ×2 (08:51→14:48)
[2020-04-20] MEDS: Moxifloxacin 0.5% Opth Drop 3 ML BOT R EYE SCH (08:51)
--- NOTE | 2020-04-20 15:22 | PDOC.HOSPP ---
- Subjective Encounter Date: 04/20/20 Encounter Time: 15:20 Subjective: Mr. Parker was seen today in follow-up of aspiration pneumonia. He is feeling much better. - Objective Vital Signs & Weight: Vital Signs (12 hours) Temp Pulse Resp BP Pulse Ox 04/20/20 11:16 97.9 F 80 18 133/71 93 L 04/20/20 08:51 93 L 04/20/20 07:41 80 167/91 H 04/20/20 07:26 98.3 F 80 18 180/93 H 93 L 04/20/20 03:48 98.5 F 80 16 142/75 H 93 L Weight Admit Weight 148 lb 12.96 oz Weight 148 lb 12.96 oz I&O: 04/19/20 04/20/20 04/21/20 06:59 06:59 06:59 Intake Total 2840 1865 1200 Output Total 900 Balance 2840 965 1200 Result Diagrams: 04/20/20 05:46 04/20/20 05:46 Hospitalist ROS - Medication Medications: Active Medications Generic Name Dose Route Start Last Admin Trade Name Freq PRN Reason Stop Dose Admin Acetaminophen 650 mg 04/15/20 16:23 04/18/20 00:36 Acetaminophen 325 Mg Tab PO 650 mg Q4H PRN Administration Headache/Fever/Mild Pain (1-3) Carvedilol 25 mg 04/15/20 21:00 04/20/20 08:51 Carvedilol 25 Mg Tab PO 25 mg BID AI Administration Enoxaparin Sodium 40 mg 04/16/20 09:00 04/20/20 08:51 Enoxaparin Sodium 40 Mg/0.4 Ml Syringe SC 40 mg 0900 AI Administration Fluticasone Propionate 1 gm 04/19/20 09:00 04/20/20 08:51 Fluticasone Propionate Nasal [place] 16 Gm Bottle NASAL 1 spr DAILY AI Administration Guaifenesin/Dextromethorphan 15 ml 04/15/20 16:23 04/18/20 00:37 Guaifenesin Dm 100-10/5 Ml Udcup PO 15 ml Q4H PRN Administration Cough Levofloxacin 500 mg 04/20/20 06:00 04/20/20 04:16 Levofloxacin 500 Mg Tab PER TUBE 500 mg 0600 AI Administration Loperamide HCl 2 mg 04/18/20 12:03 04/20/20 04:16 Loperamide Hcl 2 Mg Cap PO 2 mg PRN PRN Administration Diarrhea/Loose Stools Metronidazole 500 mg 04/19/20 15:00 04/20/20 14:48 Metronidazole 500 Mg Tab PER TUBE 500 mg TID AI Administration Ondansetron HCl 4 mg 04/15/20 16:23 04/15/20 18:22 Ondansetron Pf 4 Mg/2 Ml Vial IVP 4 mg Q6H PRN Administration Nausea/Vomiting Pantoprazole Sodium 40 mg 04/16/20 09:00 04/20/20 08:51 Pantoprazole 40 Mg Vial IVP 40 mg DAILY AI Administration Prednisolone 1% 0 each 04/15/20 21:00 04/20/20 14:48 Ophth Susp 5 Ml R EYE 1 each Bottle TID AI Administration Moxifloxacin 0.5% 0 each 04/15/20 21:00 04/20/20 08:51 Opth Drop 3 Ml Bot R EYE 1 each BID AI Administration Saccharomyces Boulardii 250 mg 04/18/20 09:00 04/20/20 08:51 Saccharomyces Boulardii 250 Mg Cap PO 250 mg DAILY AI Administration - Exam Eye: PERRL, anicteric sclera Heart: RRR, no murmur, no gallops, no rubs, normal peripheral pulses Respiratory: CTAB, no wheezes, no rales, no ronchi, normal chest expansion, no tachypnea Gastrointestinal: soft, non-tender, non-distended, normal bowel sounds, no palpable masses, no hepatomegaly Extremities: no cyanosis (good distal pulses), no edema Hosp A/P (1) Aspiration pneumonia Code(s): J69.0 - PNEUMONITIS DUE TO INHALATION OF FOOD AND VOMIT Status: Acute Qualifiers: Aspiration pneumonia type: due to regurgitated food Laterality: right (2) Diarrhea Code(s): R19.7 - DIARRHEA, UNSPECIFIED Status: Acute (3) Carotid stenosis, bilateral Code(s): I65.23 - OCCLUSION AND STENOSIS OF BILATERAL CAROTID ARTERIES Status: Acute (4) Dysphagia Code(s): R13.10 - DYSPHAGIA, UNSPECIFIED Status: Chronic Qualifiers: Dysphagia type: oropharyngeal phase Qualified Code(s): R13.12 - Dysphagia, oropharyngeal phase (5) h/o throat cancer Status: Chronic - Plan Consults: Palliative Care * Aspiration Pneumonia- Much improved * Stable for discharge home
[2020-04-20 15:56] VITALS: BP 133/69; TEMP 98.1
--- NOTE | 2020-04-20 19:19 | DIS ---
DATE OF ADMISSION: 04/16/2020 DATE OF DISCHARGE: 04/20/2020 DISCHARGE DISPOSITION: Home. DISCHARGE DIAGNOSES: 1. Aspiration pneumonia. 2. Head, neck, and throat cancer. 3. History of chronic aspiration. 4. Dysphagia with a percutaneous endoscopic gastrostomy tube in place. 5. Hypertension. DISCHARGE MEDICATIONS: Include; 1. Levaquin 500 mg per tube daily for 10 days. 2. Metronidazole 500 mg per tube three times a day for 10 days. 3. Aspirin 81 mg daily. 4. Carvedilol 25 mg twice a day. 5. Flonase nasal spray one inhalation daily. 6. Florastor 250 mg daily. 7. Imodium as needed. IMAGING DONE DURING HOSPITAL STAY: The patient had a CT scan of the chest in which there was findings of multifocal right-sided pneumonia. There are no suspicious pulmonary nodules. The patient had a CT scan of the soft tissue of the neck in which there was interval resolution of the left parapharyngeal mucosal space. There was diffuse postradiation changes throughout the neck. There was no compelling evidence for recurrent or residual malignant neoplastic activity and there is acceleration of the arthrosclerotic disease to the bilateral proximal carotids and right sphenoid air cell. CONSULTANTS DURING HOSPITAL STAY: The patient was seen by ID as well as Vascular Surgery. CODE STATUS: Full code. ALLERGIES: NO KNOWN DRUG ALLERGIES. HOSPITAL COURSE: Mr. Parker is a pleasant 79-year-old gentleman, who was admitted to the hospital with fever and shortness of breath as well as cough and congestion. The full details of which are outlined in the History of Present Illness and the History and Physical. He was admitted and found to have most likely a recurrent aspiration pneumonia. He was seen by Dr. Yoo with Infectious Disease. He was initially placed on broad-spectrum IV antibiotics and these were then transitioned to ciprofloxacin and Flagyl. AFB smears were done, which were negative. He was also seen by Vascular Surgery with regard to the carotid artery disease and due to his comorbid conditions as well as the radiation changes, it was felt that he would not be a candidate for any type of revascularization. At the time of discharge, the patient was tolerating tube feeding. He was breathing comfortably without supplemental oxygen several days prior to discharge and was subsequently able to be discharged home with close outpatient followup. Job ID: [id number]
== END 2020-04-20 16:00 | disposition home or self-care (01) | DRG 871 ==
LOC: ERS 12:36 → SURG B 15:06 → OBSVTOIN 04-16 11:01
PROVIDERS: ADMIT Internal Medicine; ATTEND Internal Medicine
DX: A41.9 Sepsis, unspecified organism (principal); J69.0 Pneumonitis due to inhalation of food and vomit; C14.0 Malignant neoplasm of pharynx, unspecified; Z20.822 Contact with and (suspected) exposure to COVID-19; I10 Essential (primary) hypertension; R13.12 Dysphagia, oropharyngeal phase; I65.23 Occlusion and stenosis of bilateral carotid arteries; D64.9 Anemia, unspecified; D69.6 Thrombocytopenia, unspecified; Z85.89 Personal history of malignant neoplasm of other organs and systems; Z92.3 Personal history of irradiation; Z98.42 Cataract extraction status, left eye; Z93.1 Gastrostomy status; Z87.891 Personal history of nicotine dependence; Z90.89 Acquired absence of other organs; Z79.899 Other long term (current) drug therapy; Z94.7 Corneal transplant status
CPT/HCPCS: 0240U; 36415; 70491; 71045; 71260; 80048; 80053; 80202; 81003; 81015; 83605; 85025; 86769; 87040; 87086; 87116; 87206; 87324; 87449; 87899; 93005; 94640; 96365; 96367; 96372; 96375; 96376; C9113; G0378; J0692; J1650; J2405; J2543; J3370; J3490; J7050; J7611; Q9967

== ENCOUNTER 2020-07-13 14:25 | Outpatient (CLI) | payer MEDICARE, OTHER | END 2020-07-13 14:26 | disposition home or self-care (01) | LOC: BICRAD 14:25 | PROVIDERS: ATTEND Family Medicine | DX: J69.0 Pneumonitis due to inhalation of food and vomit (principal); R91.8 Other nonspecific abnormal finding of lung field | CPT/HCPCS: 36415; 71046; 80053; 81001; 82306; 82607; 82746; 84425; 85025 ==

== ENCOUNTER 2021-01-17 01:46 | Inpatient (IN) | payer MEDICARE, OTHER ==
[2021-01-17 02:27] LABS: #Eosinphils 0.4 thou/uL (0.0-0.7); #Lymphocytes 0.6 thou/uL (1.20-3.40); #Monocytes 0.7 thou/uL (0.11-0.59); #Neutrophils 4.4 thou/uL (1.40-6.50); %Basophils 0.4 % (0.0-1.0); %Eosinophils 6.4 % (0.0-10.0); %Lymphocytes 10.3 % (21.0-51.0); %Neutrophils 71.9 % (42.0-75.0); Hemoglobin 10.7 g/dL (14.0-18.0); Mean Corpuscular HGB CONC 33.5 g/dL (32.0-36.0); Mean Corpuscular Hemoglobin 29.6 pg (27.0-31.0); Mean Corpuscular Volume 88.3 fL (78.0-98.0); Mean Platelet Volume 8.1 fL (7.4-10.4); Platelet Count 179 thou/uL (130-400); RBC Distribution Width 13.4 % (11.5-14.5); Red Blood Cell (RBC) Count 3.63 mill/uL (4.70-6.10); White Blood Cell (WBC) Count 6.1 thou/uL (4.8-10.8)
[2021-01-17 02:48] LABS: ALT (SGPT) 13 U/L (8-55); AST (SGOT) 19 U/L (5-34); Albumin 3.6 g/dL (3.4-4.8); Alkaline Phosphatase 89 U/L (40-110); Anion Gap 14 mmol/L (10-20); BUN (Urea Nitrogen) 18 mg/dL (8.4-25.7); Bilirubin, Total 0.6 mg/dL (0.2-1.2); Calc. Creatinine Clearance 0 mL/min (70-130); Calcium 8.9 mg/dL (7.8-10.44); Carbon Dioxide 27 mmol/L (23-31); Chloride 100 mmol/L (98-107); Globulin 3.8 g/dL (2.4-3.5); Glucose 113 mg/dL (83-110); Potassium 3.9 mmol/L (3.5-5.1); Protein, Total 7.4 g/dL (5.8-8.1); Sodium 137 mmol/L (136-145)
[2021-01-17] MEDS ORDERED: levETIRAcetam in NS 200 ML ONE (02:58)
[2021-01-17] MEDS ORDERED: Azithromycin 500 MG VIAL ONE (05:27)
[2021-01-17] MEDS ORDERED: cefTRIAXone\\ROCEPHIN 2 GM VIAL ONE (05:27)
[2021-01-17 06:56] LABS: Bilirubin Negative (Negative); Blood, Urine Negative (Negative); Clarity Clear (Clear); Glucose, Urine (Dipstick) Normal (Negative); Ketone, Urine Negative (Negative); Leukocyte Negative Leu/uL (Negative); Nitrite Negative (Negative); Protein, Urine (Dipstick) Negative (Neg-Trace); Specific Gravity, Urine 1.012 (1.002-1.036); Urobilinogen Normal mg/dL (Less than 2); pH, Urine 7.5 (5.0-9.0)
[2021-01-17] MEDS ORDERED: Acetaminophen 325 MG TAB PO PRN ×2 (07:04→09:28)
[2021-01-17] MEDS ORDERED: Ondansetron ODT 4 MG TAB PO PRN (07:04)
[2021-01-17] MEDS ORDERED: Ondansetron PF 4 MG/2 ML Vial IVP PRN ×2 (07:04→09:28)
[2021-01-17] MEDS ORDERED: HYDROcodone/Acetaminophen 5/325 mg Tablet PO PRN (09:28)
[2021-01-17] MEDS ORDERED: Calcium Carbonate 500 MG ChewTAB PO PRN (09:28)
[2021-01-17] MEDS ORDERED: Bisacodyl 10 MG SUPP PR PRN (09:28)
[2021-01-17] MEDS ORDERED: Non-Formulary Item 1 EACH (Albuterol Sulfate Hfa (Or) 200 PUFF Inh) INH PRN (09:28)
[2021-01-17] MEDS ORDERED: Guaifenesin DM 100-10/5 ML UDCUP PO PRN (09:28)
[2021-01-17] MEDS ORDERED: Lorazepam 2 MG/ML VIAL SLOW IVP PRN (09:28)
[2021-01-17] MEDS ORDERED: Albuterol 200 PUFF (6.7GM INHALER) INH PRN (09:41)
[2021-01-17] MEDS ORDERED: Magnevist 469MG/ML 20 ML VIAL ONE (09:50)
[2021-01-17] MEDS: Sodium Chloride 0.9% 1,000 ML IV SCH ×2 (10:05→20:38)
[2021-01-17 12:22] LABS: SARS-CoV-2 PCR by NAA Not Detected (NotDetected)
[2021-01-17] MEDS ORDERED: VANCOMYCIN 1.75 GM/350 ML BAG 1.75 GM in Premix Bag 1 BAG IVPB SCH (16:15)
[2021-01-17 16:29] LABS: CSF Source CSF; Clarity Clear (Clear); Tube # 4
[2021-01-17 16:39] LABS: Color Of CSF Supernatant COLORLESS (Colorless); Tube # 1; Unspun CSF Color COLORLESS (Colorless)
[2021-01-17 16:53] LABS: CSF, Glucose 56 mg/dl (40-70); CSF, Protein 50 mg/dL (15-40)
[2021-01-17] MEDS: AMPicillin 1 GM in Sodium Chloride 0.9% 100 ML IVPB SCH ×2 (18:37→23:57)
[2021-01-17] MEDS ORDERED: levETIRAcetam in NS 1,000 MG in Premix Bag 1 BAG IVPB SCH (20:15)
[2021-01-17] MEDS: Carvedilol 6.25 MG TAB PER TUBE SCH (20:18)
[2021-01-17] MEDS: Pantoprazole 40 MG GRANULES PACKET PER TUBE SCH (20:22)
[2021-01-17] MEDS: prednisoLONE 1% Ophth Susp 5 ml Bottle R EYE SCH (20:38)
[2021-01-17] MEDS: Moxifloxacin 0.5% Opth Drop 3 ML BOT EA EYE SCH (20:38)
[2021-01-17] MEDS ORDERED: Heparin 5,000 UNITS/ML VIAL SC SCH (21:00)
[2021-01-17] MEDS ORDERED: Non-Formulary Item 1 EACH (Omeprazole [Omeprazole] 20 MG Capsule.Dr) PER TUBE SCH (21:00)
[2021-01-17] MEDS ORDERED: Vancomycin HCl 1 GM in Sodium Chloride 0.9% 250 ML 250 ML IVPB SCH (21:00)
[2021-01-18 04:58] LABS: #Eosinphils 0.4 thou/uL (0.0-0.7); #Lymphocytes 0.9 thou/uL (1.20-3.40); #Monocytes 0.6 thou/uL (0.11-0.59); %Basophils 0.2 % (0.0-1.0); %Eosinophils 7.7 % (0.0-10.0); %Lymphocytes 18.1 % (21.0-51.0); %Monocytes 11.5 % (0.0-10.0); %Neutrophils 62.5 % (42.0-75.0); Hemoglobin 8.9 g/dL (14.0-18.0); Mean Corpuscular HGB CONC 33.4 g/dL (32.0-36.0); Mean Corpuscular Hemoglobin 29.7 pg (27.0-31.0); Mean Corpuscular Volume 88.9 fL (78.0-98.0); Mean Platelet Volume 9.2 fL (7.4-10.4); Platelet Count 157 thou/uL (130-400); RBC Distribution Width 13.4 % (11.5-14.5); White Blood Cell (WBC) Count 4.8 thou/uL (4.8-10.8)
[2021-01-18 05:23] LABS: Anion Gap 11 mmol/L (10-20); BUN (Urea Nitrogen) 15 mg/dL (8.4-25.7); Calc. Creatinine Clearance 90 mL/min (70-130); Carbon Dioxide 26 mmol/L (23-31); Chloride 107 mmol/L (98-107); Glucose 87 mg/dL (83-110); Potassium 3.8 mmol/L (3.5-5.1); Sodium 140 mmol/L (136-145)
[2021-01-18] MEDS: AMPicillin 1 GM in Sodium Chloride 0.9% 100 ML IVPB SCH ×3 (05:47→18:32)
[2021-01-18] MEDS: Moxifloxacin 0.5% Opth Drop 3 ML BOT EA EYE SCH ×2 (08:58→21:38)
[2021-01-18] MEDS: Carvedilol 6.25 MG TAB PER TUBE SCH (08:58)
[2021-01-18] MEDS: Pantoprazole 40 MG GRANULES PACKET PER TUBE SCH ×2 (08:58→21:03)
[2021-01-18] MEDS ORDERED: Fluticasone Propionate Nasal Spray 16 gm Bottle NASAL SCH (09:00)
[2021-01-18] MEDS: levETIRAcetam in NS 1,000 MG in Premix Bag 1 BAG IVPB SCH ×2 (09:52→21:07)
[2021-01-18] MEDS: Fluticasone Propionate Nasal Spray 16 gm Bottle NASAL SCH (09:52)
[2021-01-18] MEDS: prednisoLONE 1% Ophth Susp 5 ml Bottle R EYE SCH ×2 (10:07→21:04)
[2021-01-18] MEDS: Vancomycin 1.5 GRAM/300 ML BAG 1.5 GM in Premix Bag 1 BAG IVPB SCH (15:49)
[2021-01-18] MEDS ORDERED: Carvedilol 25 MG TAB PER TUBE SCH (16:00)
[2021-01-18] MEDS: Carvedilol 25 MG TAB PER TUBE SCH (21:03)
[2021-01-19] MEDS: AMPicillin 1 GM in Sodium Chloride 0.9% 100 ML IVPB SCH ×5 (00:11→23:36)
[2021-01-19 05:23] LABS: Anion Gap 11 mmol/L (10-20); BUN (Urea Nitrogen) 10 mg/dL (8.4-25.7); Calc. Creatinine Clearance 88 mL/min (70-130); Calcium 8.7 mg/dL (7.8-10.44); Carbon Dioxide 28 mmol/L (23-31); Chloride 107 mmol/L (98-107); Glucose 90 mg/dL (83-110); Potassium 3.8 mmol/L (3.5-5.1); Sodium 142 mmol/L (136-145)
[2021-01-19] MEDS ORDERED: GUAIFENESIN SF SOLN 200 MG/10 ML UDCUP PER TUBE PRN (07:15)
[2021-01-19] MEDS ORDERED: Hydrocerin (Eucerin) Cream 120 gm Jar TOP PRN (07:15)
[2021-01-19] MEDS ORDERED: Senokot S 8.6-50 MG TAB PER TUBE PRN (07:15)
[2021-01-19] MEDS ORDERED: Ondansetron ODT 4 MG TAB PO PRN (07:15)
[2021-01-19] MEDS ORDERED: Loratadine 10 MG TAB PER TUBE PRN (07:15)
[2021-01-19] MEDS ORDERED: hydrALAZINE 20 MG/ML VIAL SLOW IVP PRN (07:15)
[2021-01-19] MEDS ORDERED: Cepastat Lozenges 1 LOZ PO PRN (07:15)
[2021-01-19] MEDS ORDERED: Sodium Chloride 0.65% Nasal 44 ML BOT EA NARE PRN (07:15)
[2021-01-19] MEDS ORDERED: Loperamide HCl 2 MG CAP PER TUBE PRN (07:15)
[2021-01-19] MEDS ORDERED: HYDROcodone/Acetaminophen 5/325 mg Tablet PER TUBE PRN (07:17)
[2021-01-19] MEDS ORDERED: Calcium Carbonate 500 MG ChewTAB PER TUBE PRN (07:17)
[2021-01-19] MEDS: Carvedilol 25 MG TAB PER TUBE SCH ×2 (08:46→22:12)
[2021-01-19] MEDS: Pantoprazole 40 MG GRANULES PACKET PER TUBE SCH ×2 (08:46→22:12)
[2021-01-19] MEDS: Fluticasone Propionate Nasal Spray 16 gm Bottle NASAL SCH (08:47)
[2021-01-19] MEDS: Moxifloxacin 0.5% Opth Drop 3 ML BOT EA EYE SCH ×2 (08:48→21:00)
[2021-01-19] MEDS: prednisoLONE 1% Ophth Susp 5 ml Bottle R EYE SCH ×2 (08:49→21:00)
[2021-01-19] MEDS: levETIRAcetam in NS 1,000 MG in Premix Bag 1 BAG IVPB SCH ×2 (10:00→22:12)
[2021-01-19] MEDS ORDERED: Magnevist 469MG/ML 20 ML VIAL ONE (10:42)
[2021-01-19] MEDS: Vancomycin 1.5 GRAM/300 ML BAG 1.5 GM in Premix Bag 1 BAG IVPB SCH (17:52)
[2021-01-19 18:40] LABS: Vancomycin, Trough 7.7 ug/mL
[2021-01-19 20:23] VITALS: BMI 25.3
[2021-01-19] MEDS ORDERED: FLU VACC QS2021-22(65YR UP)/PF 240 MCG/0.7 ML SYRINGE IM ONE (20:45)
[2021-01-19 22:12] LABS: HSV-2 IgG Type Specific 6.65 index (0.00-0.90)
[2021-01-20] MEDS ORDERED: Vancomycin 1 GM in Premix Bag 1 BAG IVPB SCH (04:00)
[2021-01-20 05:07] LABS: Anion Gap 11 mmol/L (10-20); BUN (Urea Nitrogen) 11 mg/dL (8.4-25.7); Calc. Creatinine Clearance 83 mL/min (70-130); Calcium 8.5 mg/dL (7.8-10.44); Carbon Dioxide 27 mmol/L (23-31); Chloride 107 mmol/L (98-107); Glucose 92 mg/dL (83-110); Phosphorus 3.6 mg/dL (2.3-4.7); Potassium 3.8 mmol/L (3.5-5.1); Sodium 141 mmol/L (136-145)
[2021-01-20] MEDS: AMPicillin 1 GM in Sodium Chloride 0.9% 100 ML IVPB SCH (05:46)
[2021-01-20 06:33] LABS: White Blood Cell (WBC) Count 3.4 thou/uL (4.8-10.8)
[2021-01-20 06:53] LABS: Band 12 % (5-11); Eosinophils 10 % (0-10); Hemoglobin 9.6 g/dL (14.0-18.0); Lymphocytes 13 % (21-51); MDiff Complete? YES; Mean Corpuscular Hemoglobin 29.1 pg (27.0-31.0); Mean Corpuscular Volume 88.3 fL (78.0-98.0); Mean Platelet Volume 8.2 fL (7.4-10.4); Monocytes 12 % (0-10); Neutrophil 52 % (42-75); Platelet Count 177 thou/uL (130-400); Platelet Morphology Comment Appears Adequate; Polychromasia SLIGHT = 2-3 cells (100X) (0-2/hpf); RBC Distribution Width 13.2 % (11.5-14.5); Reactive Lymphocytes 1 % (0-10); Red Blood Cell (RBC) Count 3.29 mill/uL (4.70-6.10)
[2021-01-20 08:14] LABS: Ref Lab Test Ordered HSV PCR CSF; Reference Lab Name LABCORP
[2021-01-20] MEDS: Carvedilol 25 MG TAB PER TUBE SCH ×2 (10:45→22:08)
[2021-01-20] MEDS: levETIRAcetam in NS 1,000 MG in Premix Bag 1 BAG IVPB SCH (10:46)
[2021-01-20] MEDS: Pantoprazole 40 MG GRANULES PACKET PER TUBE SCH ×2 (10:46→22:08)
[2021-01-20] MEDS: prednisoLONE 1% Ophth Susp 5 ml Bottle R EYE SCH ×2 (10:49→22:08)
[2021-01-20] MEDS: Moxifloxacin 0.5% Opth Drop 3 ML BOT EA EYE SCH ×2 (10:49→22:09)
[2021-01-20] MEDS: Fluticasone Propionate Nasal Spray 16 gm Bottle NASAL SCH (10:49)
[2021-01-20] MEDS: levETIRAcetam 500 mg/5 ml Oral Solution PER TUBE SCH (22:08)
[2021-01-20] MEDS: Amoxicillin/Potassium Clav 875 MG TAB PER TUBE SCH (22:08)
[2021-01-21 04:41] LABS: #Eosinphils 0.5 thou/uL (0.0-0.7); #Lymphocytes 0.7 thou/uL (1.20-3.40); #Monocytes 0.3 thou/uL (0.11-0.59); #Neutrophils 1.5 thou/uL (1.40-6.50); %Basophils 0.6 % (0.0-1.0); %Eosinophils 15.7 % (0.0-10.0); %Lymphocytes 24.6 % (21.0-51.0); %Monocytes 10.6 % (0.0-10.0); %Neutrophils 48.5 % (42.0-75.0); Mean Corpuscular HGB CONC 33.2 g/dL (32.0-36.0); Mean Corpuscular Hemoglobin 29.7 pg (27.0-31.0); Mean Corpuscular Volume 89.3 fL (78.0-98.0); Mean Platelet Volume 7.6 fL (7.4-10.4); Platelet Count 172 thou/uL (130-400); RBC Distribution Width 13.2 % (11.5-14.5); Red Blood Cell (RBC) Count 3.36 mill/uL (4.70-6.10)
[2021-01-21 04:53] LABS: Vancomycin, Trough 9.1 ug/mL
[2021-01-21 05:02] LABS: Anion Gap 9 mmol/L (10-20); BUN (Urea Nitrogen) 13 mg/dL (8.4-25.7); Calc. Creatinine Clearance 77 mL/min (70-130); Calcium 8.9 mg/dL (7.8-10.44); Carbon Dioxide 32 mmol/L (23-31); Chloride 105 mmol/L (98-107); Glucose 93 mg/dL (83-110); Potassium 3.9 mmol/L (3.5-5.1); Sodium 142 mmol/L (136-145)
[2021-01-21] MEDS: Fluticasone Propionate Nasal Spray 16 gm Bottle NASAL SCH (08:44)
[2021-01-21] MEDS: Aspirin 81 mg Enteric Coated Tablet PO SCH (08:44)
[2021-01-21] MEDS: Carvedilol 25 MG TAB PER TUBE SCH ×2 (08:44→21:54)
[2021-01-21] MEDS: Amoxicillin/Potassium Clav 875 MG TAB PER TUBE SCH ×2 (08:44→21:54)
[2021-01-21] MEDS: Moxifloxacin 0.5% Opth Drop 3 ML BOT EA EYE SCH ×2 (08:45→21:54)
[2021-01-21] MEDS: levETIRAcetam 500 mg/5 ml Oral Solution PER TUBE SCH ×2 (08:45→21:56)
[2021-01-21] MEDS: Pantoprazole 40 MG GRANULES PACKET PER TUBE SCH ×2 (08:45→21:54)
[2021-01-21] MEDS: prednisoLONE 1% Ophth Susp 5 ml Bottle R EYE SCH ×2 (08:45→21:53)
[2021-01-22] MEDS: Amoxicillin/Potassium Clav 875 MG TAB PER TUBE SCH (08:36)
[2021-01-22] MEDS: Carvedilol 25 MG TAB PER TUBE SCH (08:36)
[2021-01-22] MEDS: Pantoprazole 40 MG GRANULES PACKET PER TUBE SCH (08:36)
[2021-01-22] MEDS: Aspirin 81 mg Enteric Coated Tablet PO SCH (08:36)
[2021-01-22] MEDS: prednisoLONE 1% Ophth Susp 5 ml Bottle R EYE SCH (08:37)
[2021-01-22] MEDS: Moxifloxacin 0.5% Opth Drop 3 ML BOT EA EYE SCH (08:37)
[2021-01-22] MEDS: Fluticasone Propionate Nasal Spray 16 gm Bottle NASAL SCH (08:38)
[2021-01-22 08:43] VITALS: BP 132/72; TEMP 97.8
[2021-01-22] MEDS: levETIRAcetam 500 mg/5 ml Oral Solution PER TUBE SCH (09:42)
[2021-01-26 09:38] LABS: Final Culture No virus isolated. (.)
== END 2021-01-22 10:44 | disposition home or self-care (01) | DRG 97 ==
LOC: ERS 01:46 → 2NO 04:11 → OBSVTOIN 09:28 → ONC 01-21 10:25
PROVIDERS: ADMIT Internal Medicine; ATTEND Internal Medicine
PROC: 009U3ZX Drainage of Spinal Canal, Percutaneous Approach, Diagnostic (ICD-10-PCS; principal; 2021-01-17)
DX: G04.81 Other encephalitis and encephalomyelitis (principal); J69.0 Pneumonitis due to inhalation of food and vomit; G40.909 Epilepsy, unspecified, not intractable, without status epilepticus; Z20.822 Contact with and (suspected) exposure to COVID-19; I65.23 Occlusion and stenosis of bilateral carotid arteries; D64.9 Anemia, unspecified; R13.12 Dysphagia, oropharyngeal phase; I10 Essential (primary) hypertension; Z96.641 Presence of right artificial hip joint; Z79.899 Other long term (current) drug therapy; Z85.819 Personal history of malignant neoplasm of unspecified site of lip, oral cavity, and pharynx; Z94.7 Corneal transplant status; Z87.891 Personal history of nicotine dependence; Z93.1 Gastrostomy status; Z51.5 Encounter for palliative care
CPT/HCPCS: 36415; 62270; 70450; 70553; 71045; 80048; 80053; 80202; 81003; 82945; 83735; 84100; 84157; 84443; 84484; 85025; 86592; 86644; 86645; 86694; 86695; 86696; 87070; 87205; 87252; 87529; 87798; 88112; 89051; 93005; 95712; 95819; 95957; 96365; 96366; 96375; A9579; G0378; J0133; J0290; J0360; J0456; J0696; J1953; J3370; J3490; J7050; U0003; U0005

== ENCOUNTER 2021-02-07 13:07 | Outpatient (CLI) | payer MEDICARE, OTHER | END 2021-02-07 13:08 | disposition home or self-care (01) | LOC: RAD 13:07 | PROVIDERS: ATTEND Internal Medicine Critical Care Medicine | DX: R06.00 Dyspnea, unspecified (principal); J90 Pleural effusion, not elsewhere classified | CPT/HCPCS: 71046 ==

== ENCOUNTER 2021-04-04 13:16 | Outpatient (CLI) | payer MEDICARE, OTHER | END 2021-04-04 13:17 | disposition home or self-care (01) | LOC: SJX 13:16 | PROVIDERS: ATTEND Internal Medicine Critical Care Medicine | DX: R06.00 Dyspnea, unspecified (principal); R91.8 Other nonspecific abnormal finding of lung field; J92.9 Pleural plaque without asbestos; J98.4 Other disorders of lung | CPT/HCPCS: 71046 ==

== ENCOUNTER 2021-07-06 23:13 | Inpatient (IN) | payer MEDICARE, OTHER ==
[2021-07-06] MEDS ORDERED: levETIRAcetam in NS 200 ML ONE (23:29)
[2021-07-06 23:52] LABS: #Eosinphils 0.1 thou/uL (0.0-0.7); #Lymphocytes 0.9 thou/uL (1.20-3.40); #Monocytes 0.6 thou/uL (0.11-0.59); #Neutrophils 7.5 thou/uL (1.40-6.50); %Basophils 0.2 % (0.0-1.0); %Lymphocytes 9.4 % (21.0-51.0); %Monocytes 6.2 % (0.0-10.0); %Neutrophils 83.2 % (42.0-75.0); Hemoglobin 12.1 g/dL (14.0-18.0); Mean Corpuscular HGB CONC 33.6 g/dL (32.0-36.0); Mean Corpuscular Hemoglobin 31.8 pg (27.0-31.0); Mean Corpuscular Volume 94.6 fL (78.0-98.0); Mean Platelet Volume 7.5 fL (7.4-10.4); Platelet Count 237 thou/uL (130-400); RBC Distribution Width 15.3 % (11.5-14.5); Red Blood Cell (RBC) Count 3.81 mill/uL (4.70-6.10); White Blood Cell (WBC) Count 9.1 thou/uL (4.8-10.8)
[2021-07-07 00:15] LABS: ALT (SGPT) 17 U/L (8-55); AST (SGOT) 21 U/L (5-34); Albumin 3.9 g/dL (3.4-4.8); Alkaline Phosphatase 102 U/L (40-110); Anion Gap 13 mmol/L (10-20); BUN (Urea Nitrogen) 21 mg/dL (8.4-25.7); Bilirubin, Total 0.6 mg/dL (0.2-1.2); Calc. Creatinine Clearance 0 mL/min (70-130); Calcium 9.1 mg/dL (7.8-10.44); Carbon Dioxide 28 mmol/L (23-31); Chloride 100 mmol/L (98-107); Globulin 4.8 g/dL (2.4-3.5); Glucose 137 mg/dL (83-110); Lipase 26 U/L (8-78); Protein, Total 8.7 g/dL (5.8-8.1); Sodium 137 mmol/L (136-145)
[2021-07-07 00:17] LABS: Acetaminophen Less than 10.0 mcg/mL (10.0-30.0); Alcohol Less than 10 mg/dL (Less than 10); Magnesium 2.1 mg/dL (1.6-2.6); Salicylate Less than 8.0 mg/dL (15.0-30.0)
[2021-07-07] MEDS ORDERED: Dexamethasone 10 MG/ML VIAL ONE ×3 (01:11→19:25)
[2021-07-07] MEDS ORDERED: Ondansetron PF 4 MG/2 ML Vial ONE (01:54)
[2021-07-07 04:05] LABS: SARS-CoV-2 NAA Rapid Test Not Detected (NotDetected)
[2021-07-07 08:57] LABS: Bilirubin Negative (Negative); Blood, Urine Negative (Negative); Clarity Clear (Clear); Glucose, Urine (Dipstick) Normal (Negative); Ketone, Urine Negative (Negative); Leukocyte Negative Leu/uL (Negative); Nitrite Negative (Negative); Protein, Urine (Dipstick) Negative (Neg-Trace); Specific Gravity, Urine 1.019 (1.002-1.036); Urobilinogen Normal mg/dL (Less than 2)
[2021-07-07 09:05] LABS: Amphetamine Not Detected (NotDetected); Barbiturates Screen Not Detected (NotDetected); Benzodiazepine Screen Detected (NotDetected); Cocaine Metabolite Screen Not Detected (NotDetected); Methadone Not Detected (NotDetected); Methamphetamine Not Detected (NotDetected); Opiate Screen Not Detected (NotDetected); Oxycodone Screen Not Detected (NotDetected); Phencyclidine (PCP) Not Detected (NotDetected); THC/Cannabinoid Screen Not Detected (NotDetected); Tricyclic Screen Not Detected (NotDetected)
[2021-07-07] MEDS ORDERED: Guaifenesin DM 100-10/5 ML UDCUP PO PRN (09:29)
[2021-07-07] MEDS ORDERED: Ondansetron PF 4 MG/2 ML Vial IVP PRN (09:29)
[2021-07-07] MEDS ORDERED: levETIRAcetam in NS 1,000 MG in Premix Bag 1 BAG IVPB SCH ×4 (10:00→21:00)
[2021-07-07] MEDS ORDERED: Dexamethasone 4 mg/ml Vial SLOW IVP SCH (10:15)
[2021-07-07] MEDS ORDERED: levETIRAcetam in NS 0 ML ONE (10:23)
[2021-07-07] MEDS ORDERED: Lorazepam 2 MG/ML VIAL ONE (13:56)
[2021-07-07] MEDS ORDERED: levETIRAcetam in NS 200 ML ONE (14:06)
[2021-07-07] MEDS ORDERED: Lorazepam 2 MG/ML VIAL SLOW IVP PRN ×2 (14:47→22:41)
[2021-07-07] MEDS ORDERED: Fosphenytoin Sodium 100 MG in Sodium Chloride 0.9% 100 ML IVPB SCH ×2 (15:00→18:00)
[2021-07-07] MEDS ORDERED: Fosphenytoin Sodium 100 mg/2 ml Vial ONE (19:25)
[2021-07-07] MEDS: Dexamethasone 4 mg/ml Vial SLOW IVP SCH ×2 (19:38→23:31)
[2021-07-07] MEDS ORDERED: Ketorolac Tromethamine 30 MG/ML VIAL IVP SCH (20:30)
[2021-07-07] MEDS: Famotidine/PF 20 mg/2ml Vial SLOW IVP SCH (21:52)
[2021-07-07] MEDS: Fosphenytoin Sodium 100 MG in Sodium Chloride 0.9% 100 ML IVPB SCH (22:53)
[2021-07-07 23:18] VITALS: BMI 24.5
[2021-07-08 05:03] LABS: #Lymphocytes 0.7 thou/uL (1.20-3.40); #Monocytes 0.3 thou/uL (0.11-0.59); #Neutrophils 10.9 thou/uL (1.40-6.50); %Lymphocytes 6.1 % (21.0-51.0); %Monocytes 2.3 % (0.0-10.0); %Neutrophils 91.6 % (42.0-75.0); Hemoglobin 9.8 g/dL (14.0-18.0); Mean Corpuscular HGB CONC 32.5 g/dL (32.0-36.0); Mean Corpuscular Hemoglobin 30.9 pg (27.0-31.0); Mean Corpuscular Volume 95.2 fL (78.0-98.0); Mean Platelet Volume 7.6 fL (7.4-10.4); Platelet Count 199 thou/uL (130-400); Red Blood Cell (RBC) Count 3.16 mill/uL (4.70-6.10); White Blood Cell (WBC) Count 11.9 thou/uL (4.8-10.8)
[2021-07-08] MEDS: Dexamethasone 4 mg/ml Vial SLOW IVP SCH ×3 (05:09→18:06)
[2021-07-08 05:18] LABS: Anion Gap 11 mmol/L (10-20); BUN (Urea Nitrogen) 28 mg/dL (8.4-25.7); Calc. Creatinine Clearance 72 mL/min (70-130); Calcium 8.6 mg/dL (7.8-10.44); Carbon Dioxide 27 mmol/L (23-31); Chloride 103 mmol/L (98-107); Glucose 142 mg/dL (83-110); Potassium 4.2 mmol/L (3.5-5.1); Sodium 137 mmol/L (136-145)
[2021-07-08] MEDS: Famotidine/PF 20 mg/2ml Vial SLOW IVP SCH ×2 (08:48→22:51)
[2021-07-08] MEDS: levETIRAcetam in NS 1,500 MG in Premix Bag 1 BAG IVPB SCH ×2 (08:48→20:41)
[2021-07-08] MEDS ORDERED: Enoxaparin Sodium 40 MG/0.4 ML SYRINGE SC SCH (09:00)
[2021-07-08] MEDS: Fosphenytoin Sodium 100 MG in Sodium Chloride 0.9% 100 ML IVPB SCH (09:35)
[2021-07-08] MEDS ORDERED: Fosphenytoin Sodium 1,500 MG in Sodium Chloride 0.9% 100 ML IVPB SCH (13:30)
[2021-07-08] MEDS ORDERED: Albuterol Sulfate 1.25 MG/3 ML NEB NEB PRN (14:15)
[2021-07-08] MEDS ORDERED: Sodium Chloride 0.9% 1,000 ML IV SCH (14:30)
[2021-07-08 20:49] VITALS: BP 130/74; TEMP 97.9
[2021-07-08] MEDS ORDERED: Moxifloxacin 0.5% Opth Drop 3 ML BOT R EYE SCH (21:00)
[2021-07-08] MEDS ORDERED: prednisoLONE 1% Ophth Susp 5 ml Bottle R EYE SCH (21:00)
[2021-07-08] MEDS ORDERED: Fosphenytoin Sodium 100 MG in Sodium Chloride 0.9% 100 ML IVPB SCH (21:00)
[2021-07-09] MEDS ORDERED: Fluticasone Propionate Nasal Spray 16 gm Bottle NASAL SCH (09:00)
[2021-07-11] MEDS ORDERED: ceFAZolin 2 GM/Dextrose 50 ML 2 GM in Premix Bag 1 BAG IVPB SCH (10:00)
== END 2021-07-08 22:00 | disposition short-term general hospital (02) | DRG 54 ==
LOC: ERS 23:13 → ERHOLD 07-07 01:46 → OBSVTOIN 07-07 09:29 → NEURO 07-07 20:40
PROVIDERS: ADMIT Hospitalist; ATTEND Family Medicine
PROC: 4A10X4Z Monitoring of Central Nervous Electrical Activity, External Approach (ICD-10-PCS; principal; 2021-07-07)
DX: C79.31 Secondary malignant neoplasm of brain (principal); G93.6 Cerebral edema; R56.9 Unspecified convulsions; I10 Essential (primary) hypertension; Z96.641 Presence of right artificial hip joint; Z20.822 Contact with and (suspected) exposure to COVID-19; D50.9 Iron deficiency anemia, unspecified; G13.1 Other systemic atrophy primarily affecting central nervous system in neoplastic disease; R13.10 Dysphagia, unspecified; Z66 Do not resuscitate; Z79.899 Other long term (current) drug therapy; Z79.51 Long term (current) use of inhaled steroids; Z90.49 Acquired absence of other specified parts of digestive tract; Z87.891 Personal history of nicotine dependence; Z93.1 Gastrostomy status
CPT/HCPCS: 36415; 70450; 80048; 80177; 80185; 80306; 80307; 81003; 83605; 83690; 83735; 84484; 85025; 85027; 87040; 87086; 93005; 93010; 95816; 95819; 95957; 96365; 96375; G0378; J1100; J1885; J1953; J2060; J2405; J3490; J7050; Q2009; S0028; U0002; U0003; U0005